=== PATIENT | male | born 1970 | race Caucasian/White ===

== ENCOUNTER 2016-08-06 21:34 | Emergency (ER) | payer BC ==
[~2016-08-06] VITALS: Ht 188 cm; Wt 86.2 kg
[~2016-08-06 21:34] MED LIST: ALBU8.5H3 INH; AZIT250T PO; CYCL10TA2 PO; ESCI10TA10 PO; HYDR-971 PO; IBUP800T PO; NAPR550T3 PO; ONDA8TAB12 PO; OXYM15MI4 NS; TAMS0.4C97 PO
[2016-08-06] MEDS ORDERED: IV NORMAL SALINE 1,000ML 1,000 ML IV ONE ×2 (21:45→23:15)
[2016-08-06] MEDS ORDERED: KETOROLAC 30 MG/ML VIAL. IV ONE (22:00)
[2016-08-06] MEDS ORDERED: ONDANSETRON PF 4 MG/2 ML VIAL. IV ONE ×2 (22:00→23:45)
[2016-08-06] MEDS ORDERED: HYDROMORPHONE PF 1 MG/ML DISP.SYRIN. IV ONE (22:00)
[2016-08-06 22:18] LABS: BASO # 0.1 x10^3/uL (0.0-0.2); BASO % 1 % (0-3); EOS # 0.4 x10^3/uL (0.0-0.7); EOS % 4 % (0-3); HEMATOCRIT 42.1 % (39.0-53.0); HEMOGLOBIN 13.7 g/dL (13.0-17.5); LYMPH # 3.6 x10^3/uL (1.0-4.8); LYMPH % 31 % (24-48); MEAN CORPUSCULAR HEMOGLOBIN 30 pg (25-35); MEAN CORPUSCULAR HGB CONC 33 g/dL (31-37); MEAN CORPUSCULAR VOLUME 93 fL (79-100); MONO # 0.8 x10^3/uL (0.0-1.1); MONO % 7 % (0-9); NEUT # 6.6 x10^3uL (1.8-7.7); NEUT % 57 % (31-73); PLATELET COUNT 434 x10^3/uL (140-400); RED BLOOD COUNT 4.55 x10^6/uL (4.30-5.70); RED CELL DISTRIBUTION WIDTH 14.1 % (11.5-14.5); WHITE BLOOD COUNT 11.5 x10^3/uL (4.0-11.0)
[2016-08-06 22:29] LABS: CALCIUM 8.3 mg/dL (8.5-10.1); CREATININE 0.9 mg/dL (0.7-1.3); GFR 90.8; POTASSIUM 3.4 mmol/L (3.5-5.1)
[2016-08-06] MEDS ORDERED: TRAMADOL 50 MG PO ONE (23:00)
[2016-08-06] MEDS ORDERED: PROMETHAZINE 25MG 4TABLET STARTPACK. PO ONE (23:00)
[2016-08-06] MEDS ORDERED: TAMSULOSIN 0.4 MG CAP.ER.24H. PO ONE (23:00)
--- NOTE | 2016-08-06 23:00 | RAD ---
PROCEDURE CT abdomen and pelvis without intravenous contrast. HISTORY Severe left flank pain radiating anteriorly with nausea. TECHNIQUE Helical CT of the abdomen and pelvis was performed without intravenous or oral contrast. Exposure: One or more of the following individualized dose reduction techniques were utilized for this examination: 1. Automated exposure control. 2. Adjustment of the mA and/or kV according to patient size. 3. Use of iterative reconstruction technique. COMPARISON CT abdomen pelvis April 14, 2016. FINDINGS Evaluation of solid organs of the abdomen and pelvis is limited by lack of intravenous contrast, as is standard for renal stone protocol. Evaluation of enteric structures may be limited by lack of oral contrast. Liver, spleen, pancreas, gallbladder, and bilateral adrenal glands are unremarkable. Stomach is distended by the ingested food stuffs. Aortoiliac calcified atherosclerosis is seen. No bowel obstruction or inflammation is identified. Appendix is without evidence of inflammation. Urinary bladder is unremarkable. There is evidence of mild left hydronephrosis, although it is is somewhat difficult to delineate the course of the left ureter secondary to relative paucity of intra-abdominal and intrapelvic fat. There is a 2 millimeter calcification in the left hemipelvis (axial image 123) which also can be seen on previous study. Consequently, this could represent persistent distal left ureteral stone versus phlebolith. Additional calcifications in the left hemipelvis are favored to be phleboliths and prostatic calcifications. The interpolar region of left kidney demonstrates punctate nonobstructive nephrolith. Inferior pole of left kidney demonstrates 2 millimeter nonobstructive nephrolith. Interpolar region of the right kidney demonstrates 3 millimeter nonobstructive nephrolith. Right ureter is free of stone or obstruction. IMPRESSION 1. There is a 2 millimeter calcification in the left hemipelvis, which could represent distal left ureteral stone versus phlebolith as it is unchanged from previous study. There is evidence of mild left hydronephrosis. 2. Both renal collecting systems demonstrates nonobstructive nephroliths. Electronically signed by: Anthony Cervantes MD (Aug 06, 2016 22:58:46)
[2016-08-06] MEDS ORDERED: MORPHINE SULFATE 4 MG/ML DISP.SYRIN. IV ONE (23:45)
[2016-08-07 00:21] LABS: BILIRUBIN,URINE NEG (NEG); CLARITY,URINE CLOUDY; COLOR,URINE AMBER; GLUCOSE,URINE NEG (NEG)
[2016-08-07 00:22] LABS: BACTERIA,URINE FEW /HPF (0-FEW); NITRITE,URINE NEG (NEG); RBC,URINE >40 /HPF (0-2); SQUAMOUS EPITHELIAL CELL,UR OCC /LPF; UROBILINOGEN,URINE 1 mg/dL (0.2 mg/dL); WBC,URINE 0 /HPF (0-4)
[2016-08-07] MEDS ORDERED: FENTANYL PF 100 MCG/2 ML VIAL. IV PRN (00:30)
[2016-08-07 00:40] VITALS: BP 140/90
--- NOTE | 2016-08-07 01:05 | ACF ---
Admission Criteria Forms BACK PAIN Clinical Indications for Admission to Inpatient Care (Place 'X' for any and all applicable criteria): Admission is indicated for ANY ONE of the following (1)(2)(3)(4)(5)(6): [ ]I. Inpatient admission required rather than observation care (Also use Back Pain: Observation Care as appropriate) because of ANY ONE of the following [ ]a) Severe pain requiring acute inpatient management [ ]b) Immediate inpatient surgery [ ]c) Other condition, treatment or monitoring requiring inpatient admission [ ]II. Spine fracture with significant damage or threat of damage to vertebral column or spinal cord [ ]III. Progressive or severe neurologic deficit [ ]IV. Suspected spinal infection (e.g., epidural abscess, vertebral osteomyelitis)(10) [ ]V. Suspected cause requires inpatient treatment (eg, aortic dissection) [ ]. Cauda equina syndrome as indicated by ANY ONE of the following (9): [ ]a) Bowel dysfunction [ ]b) Bladder dysfunction [ ]c) Saddle anesthesia [ ]d) Neurologic abnormality suggesting cauda equina impingement Extended stay beyond goal length of stay may be needed for (3)(25): [ ]a) Spinal cord compression from stenosis, disk, or tumor (8)(9) [ ]b) Traumatic or pathologic vertebral fracture (33) [ ]c) Vertebral infection(10) [ ]d) Severe pain that is difficult to control [ ]e) Older patients(65 years or older) The original [employer] content created by [employer] has been revised. The portions of the content which have been revised are identified through the use of italic text or in bold, and [facility] [employer] has neither reviewed nor approved the modified material. All other unmodified content is copyright [employer]. Please see references footnoted in the original [employer] edition 2016 VIRGEN MOONEY Aug 07, 2016 01:05
--- NOTE | 2016-08-07 20:23 | ED.ADGEN ---
Past History Past Medical History: Kidney Stones Past Surgical History: No Surgical History Smoking: Greater than 1 pack/day Alcohol Use: None Drug Use: None Adult General Chief Complaint Chief Complaint Left flank pain HPI HPI Patient is a 46-year-old male with history of kidney stones who presents with acute onset left lower flank pain radiating to left lower pelvis. Symptom onset 3 hours prior to ED arrival. Associated symptoms include nausea. Pain is rated moderate to severe and similar intensity and location to prior kidney stones. Patient denies hematuria, urinary frequency urgency and any urea. No fever chills, sweats or vomiting. No other acute symptoms or complaints. Review of Systems Review of Systems Review of symptoms as per history of present illness. Current Medications Current Medications Current Medications Medications (Trade) Dose Ordered Sig/Adan Start Time Stop Time Status Last Admin Dose Admin Fentanyl Citrate (Fentanyl 2ml Vial) 50 mcg PRN Q1HR PRN 08/07/16 00:30 08/07/16 01:28 DC 08/07/16 00:44 50 MCG Hydromorphone HCl (Dilaudid) 1 mg 1X ONCE 08/06/16 22:00 08/06/16 22:01 DC 08/06/16 22:00 1 MG Ketorolac Tromethamine (Toradol) 30 mg 1X ONCE 08/06/16 22:00 08/06/16 22:01 DC 08/06/16 22:00 30 MG Morphine Sulfate (Morphine 4mg Syringe) 4 mg 1X ONCE 08/06/16 23:45 08/06/16 23:49 DC 08/06/16 23:45 4 MG Ondansetron HCl (Zofran) 4 mg 1X ONCE 08/06/16 23:45 08/06/16 23:49 DC 08/06/16 23:45 4 MG Promethazine HCl (Starter Pack - Phenergan) 1 startpack 1X ONCE 08/06/16 23:00 08/06/16 23:01 DC 08/06/16 23:07 1 STARTPACK Sodium Chloride (Iv Sodium Chloride 0.9% 1,000ml) 1,000 ml @ 1,000 mls/hr 1X ONCE 08/06/16 23:15 08/07/16 00:14 DC 08/06/16 23:08 1,000 MLS/HR Tamsulosin HCl (Flomax) 0.4 mg 1X ONCE 08/06/16 23:00 3/31/17 23:01 DC 08/06/16 23:07 0.4 MG Tramadol HCl 1 startpack 1 startpack 1X ONCE 08/06/16 23:00 08/06/16 23:01 DC 08/06/16 23:07 1 STARTPACK Allergies Allergies Allergies Coded Allergies Type Severity Reaction Last Updated Verified No Known Drug Allergies 12/23/13 No Physical Exam Physical Exam Constitutional: Writhing, moderate distress secondary to pain. HENT: Normocephalic, atraumatic, bilateral external ears normal, oropharynx moist. Eyes: PERRLA, EOMI, conjunctiva normal. Neck: Normal range of motion. Cardiovascular: Regular rate and rhythm. Lungs & Thorax: Bilateral breath sounds clear to auscultation. Abdomen: Bowel sounds normal, soft, no tenderness. Skin: Warm. Back: No tenderness, no CVA tenderness. Extremities: No tenderness. Neurologic: Alert and oriented X 3, normal motor function, normal sensory function, no focal deficits noted. Psychologic: Affect normal, judgement normal, mood normal. [] Current Patient Data Vital Signs Vital Signs Date Time Temp Pulse Resp B/P Pulse Ox O2 Delivery O2 Flow Rate FiO2 08/07/16 00:40 66 16 140/90 99 Room Air 08/06/16 21:34 98.2 Lab Results Laboratory Tests Test 08/06/16 21:53 08/06/16 23:59 White Blood Count 11.5x10^3/uL (4.0-11.0) H Red Blood Count 4.55x10^6/uL (4.30-5.70) Hemoglobin 13.7g/dL (13.0-17.5) Hematocrit 42.1% (39.0-53.0) Mean Corpuscular Volume 93fL (79-100) Mean Corpuscular Hemoglobin 30pg (25-35) Mean Corpuscular Hemoglobin Concent 33g/dL (31-37) Red Cell Distribution Width 14.1% (11.5-14.5) Platelet Count 434x10^3/uL (140-400) H Neutrophils (%) (Auto) 57% (31-73) Lymphocytes (%) (Auto) 31% (24-48) Monocytes (%) (Auto) 7% (0-9) Eosinophils (%) (Auto) 4% (0-3) H Basophils (%) (Auto) 1% (0-3) Neutrophils # (Auto) 6.6x10^3uL (1.8-7.7) Lymphocytes # (Auto) 3.6x10^3/uL (1.0-4.8) Monocytes # (Auto) 0.8x10^3/uL (0.0-1.1) Eosinophils # (Auto) 0.4x10^3/uL (0.0-0.7) Basophils # (Auto) 0.1x10^3/uL (0.0-0.2) Sodium Level 144mmol/L (136-145) Potassium Level 3.4mmol/L (3.5-5.1) L Chloride Level 107mmol/L (98-107) Carbon Dioxide Level 31mmol/L (21-32) Anion Gap 6 (6-14) Blood Urea Nitrogen 11mg/dL (8-26) Creatinine 0.9mg/dL (0.7-1.3) Estimated GFR (Cockcroft-Gault) 90.8 Glucose Level 95mg/dL (70-99) Calcium Level 8.3mg/dL (8.5-10.1) L Urine Collection Type Void Urine Color Katty Urine Clarity Cloudy Urine pH 6.5 Urine Specific [place] 1.020 Urine Protein 30 mg/dl (NEG-TRACE) Urine Glucose (UA) Negmg/dL (NEG) Urine Ketones (Stick) Negmg/dL (NEG) Urine Blood Large (NEG) Urine Nitrite Neg (NEG) Urine Bilirubin Neg (NEG) Urine Urobilinogen Dipstick 1mg/dL (0.2 mg/dL) Urine Leukocyte Esterase Neg (NEG) Urine RBC >40/HPF (0-2) Urine WBC 0/HPF (0-4) Urine Squamous Epithelial Cells Occ/LPF Urine Bacteria Few/HPF (0-FEW) Urine Mucus Slight/LPF EKG EKG [] Radiology/Procedures Radiology/Procedures [CT abdomen pelvis without contrast: Affect are nephrosis with proximal hydroureter with possible 2 mm UVJ stone per radiology report.] Impressions: Left flank pain, hematuria, with suspected stone on CT abdomen and pelvis. Course & Med Decision Making Course & Med Decision Making Pertinent Labs and Imaging studies reviewed. (See chart for details) [Repeat doses of narcotic pain medication given. Patient resting comfortably at time of discharge. Recommendation is home supportive care and close urology follow-up. Return precautions reviewed.] Final Impression Final Impression [#1 left flank pain #2 infrarenal stone] Problems: Dragon Disclaimer Dragon Disclaimer This electronic medical record was generated, in whole or in part, using a voice recognition dictation system. AMEENA LEVI DO Aug 07, 2016 20:23
== END 2016-08-07 00:50 | disposition home or self-care (01) ==
LOC: ER 21:34
DX: N20.0 Calculus of kidney (principal); R31.9 Hematuria, unspecified; F17.210 Nicotine dependence, cigarettes, uncomplicated; Z87.442 Personal history of urinary calculi
CPT/HCPCS: 36415; 74176; 80048; 81001; 85027; 96361; 96374; 96375; 96376; 99285; J1170; J1885; J2270; J2405; J3010; J7030

== ENCOUNTER 2016-08-20 20:23 | Emergency (ER) | payer BC ==
[~2016-08-20] VITALS: Ht 188 cm; Wt 86.2 kg
--- NOTE | 2016-08-20 20:26 | PHYS DOC ---
General Stated Complaint: POSSIBLE KIDNEY STONE Time Seen by MD: 20:25 Source: patient Problems: History of Present Illness Initial Comments Patient here for left flank pain. Patient says it started about 2 hours prior to arrival in emergency department. He says he had flank pain like this 2 weeks ago was diagnosed with kidney stone. He also says he had episodes like this on both sides over the last year which were related to kidney stones. He has no recent history of injury or trauma to the area. He says the pain is sharp and throbbing. He's felt hot like he had a fever but has not taken his temperature. There's no chills. There is no runny nose or sore throat. There's no chest pain or shortness of breath. He's had some nausea but no vomiting. He does have some radiation the pain in the flank left midabdominal region. There is no change in bowel or bladder habits. He has not noticed any discoloration or blood in the urine. He denies any focal extremity or neurologic complaints. Patient had some medication left over from his previous admission to the ER 2 weeks ago that he took at home with some help. There is no other increasing or decreasing factors. He notes it is worse when he lies down. Patient's past medical history is otherwise unremarkable except for kidney stones. He does smoke a pack of cigarettes daily. He is nonuser of ethanol. There is no family history of kidney stones. Allergies: Coded Allergies: No Known Drug Allergies (Unverified , 12/23/13) Past Medical History Medical History: kidney stones Family History Significant Family History: no pertinent family hx Social History Smoker: less than 1 pack/day Alcohol: none Review of Systems All Other Systems: Reviewed and Negative Physical Exam General Appearance: WD/WN, mild distress Neck: full range of motion, supple, normal inspection Respiratory: lungs clear, normal breath sounds, no respiratory distress Cardiovascular: regular rate, rhythm, no edema Gastrointestinal: soft, no organomegaly, tenderness Back: no vertebral tenderness, CVA tenderness (L) Extremities: non-tender, normal inspection, no pedal edema Neurologic/Psychiatric: alert, normal mood/affect, oriented x 3 Skin: normal color Lymphatic: no adenopathy Comments Generally this is a thin white male who does look to be mildly uncomfortable with presumed flank pain. Vitals are as noted. Pertinent findings on physical exam shows a chest and cardiac exams unremarkable. Patient does have distinct left CVA tenderness. He has some mild left midabdominal tenderness, much less so than slight tenderness. There is no masses, organomegaly, or perineal findings. There is no signs of trauma about the abdomen or flank. Externally show no rash cyanosis or edema. He is alert awake and oriented and cooperative. Remainder of physical exam is quickly unremarkable. Orders, Labs, Meds Old charts note multiple prior ER visits for variety of issues. He is most recently seen at the end of July for ureteral stone. He has CT scan done at that time which showed some proximal hydronephrosis with a 2 mm stone at the UVJ. Patient did well and was discharged home. He is also seen in the ER for abdominal pain, flank pain, URI, cervical sprain, and on multiple occasions for low back pain with sciatica. Labs today shows stable renal function. Potassium is minimally decreased at 3.1. Renal ultrasound shows mild to moderate left hydronephrosis per radiology. 2300 Patient resting in the ER. He says he feels improved. He still looks mildly uncomfortable but does look better than before. His mother is now here with him. I discussed with them most likely cause of his discomfort is related to renal stone. We had discussed earlier in the ER course, and I reinforced now , that we wanted to avoid repeat CT scans due to radiation exposure, we will ultrasound shows the presence of obstruction really can't shows the size of the stone. I discussed we really need to go with his symptoms at this time. He was feeling significantly better, we could try to handle this home, but if he was still in significant discomfort it would make sense to bring him into the hospital for fluids, medications, and probable urology consult for stone removal. After discussion, he would like to try to handle this at home. His previous stone was relatively small and so hopefully this is the case today as well. We'll give him appropriate medication for pain, with prescriptions for Lortab, as well as for Zofran for nausea. Make sure he is able to drink some fluids before the ED. I'll try to prescription for potassium tablets, as he is slightly low at this time. I discussed with the patient and his mother the need to follow up with primary care and certainly return immediately if worsening anyway, including increasing pain, more vomiting, or any other symptoms. I suggested at that point the stone may require removal. They do voice understanding need to return immediately as needed if worsen anyway, and his mother reassures me that she will bring him back as needed. He still looks mildly uncomfortable but overall improved, in no acute distress at this time, and okay for discharge home per his preference. JESÚS HARRISON MD Aug 20, 2016 20:26
[2016-08-20 20:49] VITALS: BP 134/70
[2016-08-20] MEDS ORDERED: IV NORMAL SALINE 1,000ML 1,000 ML IV ONE (21:30)
[2016-08-20] MEDS ORDERED: ONDANSETRON PF 4 MG/2 ML VIAL. IV ONE (21:30)
[2016-08-20] MEDS ORDERED: KETOROLAC 30 MG/ML VIAL. IV ONE (21:30)
[2016-08-20 22:18] LABS: BASO # 0.1 x10^3/uL (0.0-0.2); BASO % 1 % (0-3); EOS # 0.4 x10^3/uL (0.0-0.7); EOS % 4 % (0-3); HEMOGLOBIN 13.9 g/dL (13.0-17.5); LYMPH # 2.6 x10^3/uL (1.0-4.8); LYMPH % 24 % (24-48); MEAN CORPUSCULAR HEMOGLOBIN 30 pg (25-35); MEAN CORPUSCULAR HGB CONC 33 g/dL (31-37); MEAN CORPUSCULAR VOLUME 92 fL (79-100); MONO # 0.8 x10^3/uL (0.0-1.1); MONO % 8 % (0-9); NEUT # 6.8 x10^3uL (1.8-7.7); NEUT % 63 % (31-73); PLATELET COUNT 433 x10^3/uL (140-400); RED BLOOD COUNT 4.58 x10^6/uL (4.30-5.70); RED CELL DISTRIBUTION WIDTH 13.9 % (11.5-14.5); WHITE BLOOD COUNT 10.7 x10^3/uL (4.0-11.0)
[2016-08-20 22:24] LABS: ALBUMIN/GLOBULIN RATIO 0.8 (1.0-1.7); CALCIUM 8.6 mg/dL (8.5-10.1); GFR 80.4; POTASSIUM 3.1 mmol/L (3.5-5.1); TOTAL BILIRUBIN 0.3 mg/dL (0.2-1.0); TOTAL PROTEIN 6.7 g/dL (6.4-8.2)
--- NOTE | 2016-08-20 22:30 | RAD ---
PROCEDURE Left renal ultrasound. HISTORY Left flank pain x4 hours. TECHNIQUE Real-time ultrasound imaging of the left kidney and the bladder is performed. COMPARISON CT abdomen and pelvis without contrast, August 06, 2016. FINDINGS Left kidney length is 13.5 cm. Cortical echotexture appears normal. Normal corticomedullary differentiation. There is mild to moderate left hydronephrosis. There is mild perinephric free fluid. The urinary bladder is normal. Right and left ureteral jets are seen. Single image of the abdominal aorta is normal caliber. Right kidney is not imaged. IMPRESSION Mild to moderate left hydronephrosis. Electronically signed by: Tigre Alcaraz MD (Aug 20, 2016 22:28:44)
[2016-08-20] MEDS ORDERED: ONDANSETRON ODT 4 MG TAB.RAPDIS PO ONE (23:30)
[2016-08-20] MEDS ORDERED: HYDROCODONE/APAP 10/325 TABLET. PO ONE (23:30)
[2016-08-20] MEDS ORDERED: POTASSIUM CHLORIDE 20 MEQ/15 ML ORAL LIQUID. PO ONE (23:30)
== END 2016-08-20 23:36 | disposition home or self-care (01) ==
LOC: ER 20:23
DX: N13.30 Unspecified hydronephrosis (principal); F17.210 Nicotine dependence, cigarettes, uncomplicated; Z87.442 Personal history of urinary calculi
CPT/HCPCS: 36415; 76775; 80053; 85027; 96361; 96374; 96375; 99285; J1885; J2405; Q0162; J7030

== ENCOUNTER 2016-08-23 14:48 | Emergency (ER) | payer BC ==
--- NOTE | 2016-08-23 15:08 | ED.ADGEN ---
Past History Past Medical History: Other Past Surgical History: No Surgical History Smoking: Greater than 1 pack/day Alcohol Use: None Drug Use: None Adult General HPI HPI Patient is a 46-year-old male presents emergency department complaining of migraine headache. This is the third lifetime migraine headache for him. He describes pain that is bilateral on the back of both sides of his head. He has associated photophobia and phonophobia. He also endorses nausea with it. This headache is been going on for approximately 15 hours. He did try some ibuprofen early this morning without any success. Review of Systems Review of Systems Constitutional: Denies fever or chills [] Eyes: Denies change in visual acuity, redness, or eye pain [] HENT: Denies nasal congestion or sore throat [] Respiratory: Denies cough or shortness of breath [] Cardiovascular: No additional information not addressed in HPI [] GI: Denies abdominal pain, nausea, vomiting, bloody stools or diarrhea [] : Denies dysuria or hematuria [] Musculoskeletal: Denies back pain or joint pain [] Integument: Denies rash or skin lesions [] Neurologic: Denies headache, focal weakness or sensory changes [] Endocrine: Denies polyuria or polydipsia [] Current Medications Current Medications Current Medications Medications (Trade) Dose Ordered Sig/Adan Start Time Stop Time Status Last Admin Dose Admin Acetaminophen (Tylenol) 1,000 mg 1X ONCE 08/23/16 15:45 08/23/16 15:46 DC 08/23/16 15:39 1,000 MG Diphenhydramine HCl (Benadryl) 25 mg 1X ONCE 08/23/16 15:30 08/23/16 15:31 DC 08/23/16 15:15 25 MG Ketorolac Tromethamine (Toradol) 15 mg 1X ONCE 08/23/16 15:30 08/23/16 15:31 DC 08/23/16 15:15 15 MG Prochlorperazine Edisylate (Compazine) 10 mg 1X ONCE 08/23/16 15:30 08/23/16 15:31 DC 08/23/16 15:15 10 MG Sodium Chloride (Iv Sodium Chloride 0.9% 1,000ml) 1,000 ml @ 1,000 mls/hr 1X ONCE 08/23/16 15:30 08/23/16 16:29 08/23/16 15:15 1,000 MLS/HR Allergies Allergies Allergies Coded Allergies Type Severity Reaction Last Updated Verified No Known Drug Allergies 12/23/13 No Physical Exam Physical Exam Constitutional: Well developed, well nourished, no acute distress, non-toxic appearance. [] HENT: Normocephalic, atraumatic, bilateral external ears normal, oropharynx moist, no oral exudates, nose normal. [] Eyes: PERRLA, EOMI, conjunctiva normal, no discharge. [] Neck: Normal range of motion, no tenderness, supple, no stridor. [] Cardiovascular:Heart rate regular rhythm, no murmur [] Lungs & Thorax: Bilateral breath sounds clear to auscultation [] Abdomen: Bowel sounds normal, soft, no tenderness, no masses, no pulsatile masses. [] Skin: Warm, dry, no erythema, no rash. [] Back: No tenderness, no CVA tenderness. [] Extremities: No tenderness, no cyanosis, no clubbing, ROM intact, no edema. [] Neurologic: Alert and oriented X 3, normal motor function, normal sensory function, no focal deficits noted. [] Psychologic: Affect normal, judgement normal, mood normal. [] Current Patient Data Vital Signs Vital Signs Date Time Temp Pulse Resp B/P Pulse Ox O2 Delivery O2 Flow Rate FiO2 08/23/16 16:00 99.8 96 18 109/41 94 Room Air EKG EKG [] Radiology/Procedures Radiology/Procedures [] Course & Med Decision Making Course & Med Decision Making Pertinent Labs and Imaging studies reviewed. (See chart for details) IV fluids, Compazine, Benadryl, Toradol. Patient is had significant improvement in his pain. He is also started to show a fever but the patient had been wrapped tightly multiple blankets and we went to the room. Nonetheless he did give him some Tylenol and his temperature is return to normal. Patient has no focal complaints such as rhinorrhea or cough. At this point we will discharge him home with follow-up and supportive care instructions. [] Final Impression Final Impression Migraine headache Viral syndrome [] Problems: Dragon Disclaimer Dragon Disclaimer This electronic medical record was generated, in whole or in part, using a voice recognition dictation system. MARYBETH ELLISON MD Aug 23, 2016 15:07
[2016-08-23] MEDS: DIPHENHYDRAMINE 50 MG/ML VIAL IVP ONE (15:15)
[2016-08-23] MEDS: PROCHLORPERAZINE 10 MG/2 ML VIAL. IV ONE (15:15)
[2016-08-23] MEDS: KETOROLAC 15 MG/ML VIAL. IV ONE (15:15)
[2016-08-23] MEDS: IV NORMAL SALINE 1,000ML 1,000 ML IV ONE (15:15)
[2016-08-23] MEDS: ACETAMINOPHEN 500 MG TABLET PO ONE (15:39)
[2016-08-23] MEDS ORDERED: ONDA4TAB10 PO (15:49)
[2016-08-23 16:00] VITALS: BP 109/41
== END 2016-08-23 15:55 | disposition home or self-care (01) ==
LOC: ER 14:48
DX: G43.909 Migraine, unspecified, not intractable, without status migrainosus (principal); B34.9 Viral infection, unspecified; F17.200 Nicotine dependence, unspecified, uncomplicated
CPT/HCPCS: 96361; 96374; 96375; 99284; J0780; J1200; J1885; J7030

== ENCOUNTER 2016-08-26 08:50 | Emergency (ER) | payer BC ==
[~2016-08-26 08:50] MED LIST changes: +ONDA4TAB10 PO
[2016-08-26] MEDS ORDERED: IV NORMAL SALINE 1,000ML 1,000 ML IV SCH ×2 (08:53→09:53)
[2016-08-26] MEDS ORDERED: ONDANSETRON PF 4 MG/2 ML VIAL. IV ONE (09:00)
[2016-08-26] MEDS ORDERED: FAMOTIDINE 20 MG/2 ML VIAL IVP ONE (09:15)
--- NOTE | 2016-08-26 09:23 | EKG ---
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
[2016-08-26 09:27] LABS: BASO % 1 % (0-3); EOS % 0 % (0-3); HEMOGLOBIN 14.7 g/dL (13.0-17.5); LYMPH # 0.8 x10^3/uL (1.0-4.8); LYMPH % 13 % (24-48); MEAN CORPUSCULAR HEMOGLOBIN 30 pg (25-35); MEAN CORPUSCULAR HGB CONC 33 g/dL (31-37); MEAN CORPUSCULAR VOLUME 92 fL (79-100); MONO # 0.3 x10^3/uL (0.0-1.1); MONO % 5 % (0-9); NEUT # 5.3 x10^3uL (1.8-7.7); NEUT % 82 % (31-73); PLATELET COUNT 309 x10^3/uL (140-400); RED BLOOD COUNT 4.89 x10^6/uL (4.30-5.70); RED CELL DISTRIBUTION WIDTH 14.1 % (11.5-14.5); WHITE BLOOD COUNT 6.4 x10^3/uL (4.0-11.0)
--- NOTE | 2016-08-26 09:33 | RAD ---
Indication syncopal episode. Nausea and vomiting. A single view of the chest as well as flat and upright films of the abdomen were obtained. Note is made of plain films of the abdomen 03/02/2012 as well as a two-view examination of the chest obtained the same day. Note is made of a CT examination of the abdomen and pelvis 08/06/2016. The heart and pulmonary vessels appear normal. The lungs are clear of acute infiltrates. There is no free air. There is a small amount of gas in nondistended loops of small bowel in the left abdomen. A significant finding in the abdomen is not apparent on plain films. A calcification is noted in the left pelvis compatible with a phlebolith similar to the previous plain film exam IMPRESSION: No acute or significant findings seen in the chest or abdomen on plain films.
[2016-08-26 09:37] LABS: ALBUMIN/GLOBULIN RATIO 0.8 (1.0-1.7); CREATININE 1.7 mg/dL (0.7-1.3); GFR 43.6; MAGNESIUM 1.6 mg/dL (1.8-2.4); POTASSIUM 3.6 mmol/L (3.5-5.1); TOTAL BILIRUBIN 0.2 mg/dL (0.2-1.0)
--- NOTE | 2016-08-26 09:37 | PHYS DOC ---
General Chief Complaint: SYNCOPE Stated Complaint: ABD PAIN Time Seen by MD: 08:51 Source: patient, EMS, old records Exam Limitations: no limitations Problems: History of Present Illness Initial Comments Pt is 46/M to ED via EMS for n/v, syncope. Pt was seen here 08/23 with less than 24h fever/nausea/CAI, sx improved with antiemetics/IVF and pt discharged home. Pt states that n/v have been persistent, with emesis 2-3 times/day past 3 days. Pt had loose watery stool at home this am, states he's been eating mainly soup as it's been a struggle to keep anything down. Pt CAI which was severe on has reportedly overall resolved, pt still c/o of "something not right" with frontal head discomfort. Denies abdominal pain/distension aside from muscle discomfort resultant from emesis, no travel/bad food exposure. No rash or neck stiffness, no focal neurodeficit, and CAI has been slowly improving. Pt states he tried to go to work today, he says he "passed out" at work three times this morning although denies falls or injury resultant from falls. "Passing out" described as feeling very weak and needing to sit/lay down. EMS reports pt BP 80's/40's, gave 500ML fluids en route. Allergies: Coded Allergies: No Known Drug Allergies (Unverified , 12/23/13) Past Medical History Medical History: kidney stones, other (kidney stones, migraines) Surgical History: noncontributory Family History Significant Family History: no pertinent family hx Review of Systems Constitutional: see HPI EENTM: denies eye pain, denies ear pain, denies nose pain, denies throat pain Respiratory: denies cough, denies shortness of breath, denies wheezing Cardiovascular: see HPIdenies chest pain, denies palpitations Gastrointestinal: see HPI Genitourinary: denies dysuria, denies frequency, denies hematuria Musculoskeletal: denies back pain, denies joint swelling, denies neck pain Psychiatric/Neurological: see HPI Hematologic/Lymphatic: denies blood clots, denies easy bleeding, denies easy bruising Physical Exam General Appearance: moderate distress, thin Eyes: bilateral eye EOMI, bilateral eye PERRL, bilateral eye normal inspection Ear, Nose, Throat: hearing grossly normal, normal ENT inspection (dry mucus membranes), normal pharynx Neck: non-tender, supple Respiratory: normal breath sounds, no respiratory distress Cardiovascular: normal peripheral pulses, regular rate, rhythm Gastrointestinal: normal bowel sounds, non tender, soft, no organomegaly Back: no CVA tenderness, no vertebral tenderness Extremities: non-tender, normal inspection 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 PHYSICIAN: TIFFANI HELLER DO REASON: abd pain, n/v, syncope/hypotension PROCEDURE: ACUTE ABDOMEN SERIES Indication syncopal episode. Nausea and vomiting. A single view of the chest as well as flat and upright films of the abdomen were obtained. Note is made of plain films of the abdomen 03/02/2012 as well as a two-view examination of the chest obtained the same day. Note is made of a CT examination of the abdomen and pelvis 08/06/2016. The heart and pulmonary vessels appear normal. The lungs are clear of acute infiltrates. There is no free air. There is a small amount of gas in nondistended loops of small bowel in the left abdomen. A significant finding in the abdomen is not apparent on plain films. A calcification is noted in the left pelvis compatible with a phlebolith similar to the previous plain film exam IMPRESSION: No acute or significant findings seen in the chest or abdomen on plain films. DICTATED AND SIGNED BY: DRE METZGER MD DATE: 08/26/16925 CC: BENJAMIN DOUGLAS MD; TIFFANI HELLER DO ~ PATIENT: ZAIRA ARRINGTON ACCOUNT: [id number] : 1970 LOCATION: ER AGE: 46 SEX: M EXAM STATUS: REG ER ORD. PHYSICIAN: TIFFANI HELLER DO REASON: CAI, n/v, syncope PROCEDURE: CT HEAD WO CONTRAST CT of the head without contrast, 08/26/2016: History: Syncope, nausea and vomiting The ventricles are within normal limits in size. There is no shift of the midline structures. There is no evidence of acute intracranial hemorrhage or mass effect. IMPRESSION: The CT of the head without contrast reveals no significant abnormality. RS Compliance Statement: One or more of the following individualized dose reduction techniques were utilized for this examination: 1. Automated exposure control 2. Adjustment of the mA and/or kV according to patient size 3. Use of iterative reconstruction technique DICTATED AND SIGNED BY: AMILCAR SCHWARTZ MD DATE: 08/26/16 1010 CC: BENJAMIN DOUGLAS MD; TIFFANI HELLER DO ~ 1127: Urine studies are pending, all else is back. Cr 1.7 otherwise unremarkable. Pt states he's feeling much better, just a little queasy. He has submitted urine specimen and it has been sent to lab. I discussed need to check orthostatic VS after hydration (total 2.5L NS IV) and have ordered magnesium replacement as well as K+ replacement as K+ 3.6 will fall below normal after dilution. Pt is very interested in a work note excusing him from work thru next Tuesday. Departure Time of Disposition: 12:00 Disposition: HOME, SELF-CARE Diagnosis: Hypovolemia w/hypotension, N/V, renal insuff, Condition: IMPROVED Patient Instructions: Creatinine, Blood (Serum Creatinine), Dehydration, Adult , [id number], Nausea and Vomiting, [id number] Additional Instructions: Off work thru 08/31 per request. Clear liquids, advance slowly to bland diet as tolerated. Aggressive hydration with gatorade, water. Rx: phenergan supp, zofran odt Follow up with your doctor in 2-3 days for recheck. Return to ED with new or changing symptoms. TIFFANI HELLER DO Aug 26, 2016 09:37
[2016-08-26 09:59] LABS: INFLUENZA A PATIENT NEGATIVE (NEGATIVE); INFLUENZA B PATIENT NEGATIVE (NEGATIVE)
[2016-08-26 10:04] VITALS: BP 100/56
--- NOTE | 2016-08-26 10:14 | RAD ---
CT of the head without contrast, 08/26/2016: History: Syncope, nausea and vomiting The ventricles are within normal limits in size. There is no shift of the midline structures. There is no evidence of acute intracranial hemorrhage or mass effect. IMPRESSION: The CT of the head without contrast reveals no significant abnormality. PQRS Compliance Statement: One or more of the following individualized dose reduction techniques were utilized for this examination: 1. Automated exposure control 2. Adjustment of the mA and/or kV according to patient size 3. Use of iterative reconstruction technique
[2016-08-26 11:34] LABS: AMPHETAMINE/METHAMPHETAMINE NEG (NEG); BARBITURATES NEG (NEG); BENZODIAZEPINES NEG (NEG); CANNABINOIDS NEG (NEG); COCAINE NEG (NEG); METHADONE NEG (NEG); OPIATES NEG (NEG); PHENCYCLIDINE NEG (NEG)
[2016-08-26 11:41] LABS: CLARITY,URINE HAZY; COLOR,URINE AMBER; GLUCOSE,URINE NEG (NEG)
[2016-08-26 11:42] LABS: AMORPHOUS SEDIMENT,UR PRESENT /HPF; BACTERIA,URINE 0 /HPF (0-FEW); BILIRUBIN,URINE NEG (NEG); GRANULAR CASTS,URINE OCC /HPF; HYALINE CASTS, URINE MANY /HPF; NITRITE,URINE NEG (NEG); RBC,URINE 0 /HPF (0-2); SQUAMOUS EPITHELIAL CELL,UR MOD /LPF; UROBILINOGEN,URINE 1 mg/dL (0.2 mg/dL)
[2016-08-26] MEDS ORDERED: POTASSIUM CHLORIDE 20 MEQ TABLET.ER. PO ONE (11:45)
[2016-08-26] MEDS ORDERED: MAGNESIUM CHLORIDE ER 64 MG TABLET.ER PO ONE (11:45)
[2016-08-26] MEDS ORDERED: ONDA4TAB10 PO (12:05)
[2016-08-26] MEDS ORDERED: PROM25SU32 RC (12:05)
== END 2016-08-26 12:25 | disposition home or self-care (01) ==
LOC: ER 08:50
DX: E86.1 Hypovolemia (principal); I95.9 Hypotension, unspecified; R11.2 Nausea with vomiting, unspecified; N28.9 Disorder of kidney and ureter, unspecified; G43.909 Migraine, unspecified, not intractable, without status migrainosus; Z87.442 Personal history of urinary calculi
CPT/HCPCS: 36415; 70450; 74022; 80053; 80305; 80320; 81001; 82550; 83605; 83690; 83735; 84484; 85027; 87040; 87070; 87804; 87880; 93005; 96361; 96374; 96375; 99285; J2405; S0028; G0480; G0481; J7030

== ENCOUNTER 2016-09-01 05:18 | Emergency (ER) | payer BC ==
[~2016-09-01] VITALS: Ht 188 cm; Wt 77.0 kg
[~2016-09-01 05:18] MED LIST changes: +PROM25SU32 RC
[2016-09-01 05:26] VITALS: BP 95/60
--- NOTE | 2016-09-01 05:43 | ED.ADGEN ---
Past History Past Medical History: Kidney Stones, Migraines (KELLY KIMBLE MD) Past Surgical History: No Surgical History (KELLY KIMBLE MD) Smoking: Greater than 1 pack/day Alcohol Use: None Drug Use: None (KELLY KIMBLE MD) General Abdominal Assessment Chief Complaint Abdominal pain and nausea (KELLY KIMBLE MD) History of Present Illness Patient is a pleasant 46-year-old male with history of smoking prior history of sciatica, kidney stones, flank pain, migraines who presents with a 2 day history of right flank pain that has gotten progressively worse. He describes the pain as sharp stabbing with minimal radiation to the lower abdomen. He has had some nausea without vomiting or diarrhea. He denies any hematuria and denies any inability to urinate. Denies any trauma. Patient admits that he has had some nausea that has been response to Zofran. He was seen 1 week ago for similar symptoms here in the emergency department. He drove himself here after work. The pain was more severe than earlier today. He admits to having subjective fevers and chills and decreased appetite. (KELLY KIMBLE MD) Review of Systems Constitutional: fever or chills [] Eyes: Denies change in visual acuity, redness, or eye pain [] HENT: Denies nasal congestion or sore throat [] Respiratory: Denies cough or shortness of breath [] Cardiovascular: No additional information not addressed in HPI [] GI: Denies abdominal pain, nausea, vomiting, bloody stools or diarrhea [] : Denies dysuria or hematuria [] Musculoskeletal: He has chronic back pain or joint pain [] Integument: Denies rash or skin lesions [] Neurologic: Denies headache, focal weakness or sensory changes [] Endocrine: Denies polyuria or polydipsia [] (KELLY KIMBLE MD) Current Medication Current Medications Medications (Trade) Dose Ordered Sig/Adan Start Time Stop Time Status Last Admin Dose Admin Hydromorphone HCl 1 mg 1 mg PRN Q15MIN PRN 09/01/16 05:45 09/02/16 05:44 09/01/16 05:51 1 MG Ondansetron HCl (Zofran) 4 mg 1X ONCE 09/01/16 05:45 09/01/16 05:47 DC 09/01/16 05:45 4 MG Sodium Chloride (Iv Sodium Chloride 0.9% 1,000ml) 1,000 ml @ 1,000 mls/hr Q1H 09/01/16 05:45 09/01/16 06:44 09/01/16 05:45 1,000 MLS/HR Sodium Chloride (Normal Saline Flush) 10 ml QSHIFT PRN 09/01/16 05:45 09/01/16 05:50 10 ML (CM HELMS MD) Allergies Allergies Coded Allergies Type Severity Reaction Last Updated Verified No Known Drug Allergies 12/23/13 No (CM HELMS MD) Allergies No allergies (KELLY KIMBLE MD) Physical Exam Vital signs noted on exam from nursing notes within normal limits. Constitutional: Well developed, well nourished,and feels very uncomfortable with this time but nontoxic in appearance. HENT: Normocephalic, atraumatic, oropharynx is dry poor dentition Eyes: PERRLA, EOMI, conjunctiva normal, no discharge. Neck: Normal range of motion, no tenderness, Cardiovascular:Heart rate regular rhythm, no murmur [] Lungs & Thorax: Bilateral breath sounds clear to auscultation [] Abdomen: Abdomen distended palpation over the right flank with no obvious changes in skin discoloration. Patient is no rebound guarding or organomegaly. Patient inserts no specific McBurney's or Gonzalez sign. Skin: Warm, dry, no erythema, no rash. Back: No tenderness, no CVA tenderness. [] Extremities: No tenderness, no cyanosis, no clubbing, ROM intact, no edema. [] Neurologic: Alert and oriented X 3, normal motor function, normal sensory function, no focal deficits noted. [] Psychologic: Affect normal, judgement normal, mood normal. He is anxious (KELLY KIMBLE MD) Negative Abdominal Assessment Patient denies any diarrhea or trauma. 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 [] PULSE OXIMETRY The patient maintained their pulse oximetry readings above 90 percent during their evaluation per my interpretation.[] (KELLY KIMBLE MD) Radiology/Procedures [] Indication syncopal episode. Nausea and vomiting. A single view of the chest as well as flat and upright films of the abdomen were obtained. Note is made of plain films of the abdomen 03/02/2012 as well as a two-view examination of the chest obtained the same day. Note is made of a CT examination of the abdomen and pelvis 08/06/2016. The heart and pulmonary vessels appear normal. The lungs are clear of acute infiltrates. There is no free air. There is a small amount of gas in nondistended loops of small bowel in the left abdomen. A significant finding in the abdomen is not apparent on plain films. A calcification is noted in the left pelvis compatible with a phlebolith similar to the previous plain film exam IMPRESSION: No acute or significant findings seen in the chest or abdomen on plain films. DICTATED AND SIGNED BY: DRE METZGER MD DATE: 08/26/16 0926 Reviewed acute abdomen series from 08/26/16 no acute findings at that time. As read by radiology (KELLY KIMBLE MD) Current Data Laboratory Tests Test 09/01/16 05:30 09/01/16 05:45 White Blood Count 6.7x10^3/uL (4.0-11.0) Red Blood Count 5.20x10^6/uL (4.30-5.70) Hemoglobin 15.7g/dL (13.0-17.5) Hematocrit 47.5% (39.0-53.0) Mean Corpuscular Volume 91fL (79-100) Mean Corpuscular Hemoglobin 30pg (25-35) Mean Corpuscular Hemoglobin Concent 33g/dL (31-37) Red Cell Distribution Width 13.7% (11.5-14.5) Platelet Count 334x10^3/uL (140-400) Neutrophils (%) (Auto) 66% (31-73) Lymphocytes (%) (Auto) 26% (24-48) Monocytes (%) (Auto) 7% (0-9) Eosinophils (%) (Auto) 1% (0-3) Basophils (%) (Auto) 0% (0-3) Neutrophils # (Auto) 4.4x10^3uL (1.8-7.7) Lymphocytes # (Auto) 1.8x10^3/uL (1.0-4.8) Monocytes # (Auto) 0.5x10^3/uL (0.0-1.1) Eosinophils # (Auto) 0.1x10^3/uL (0.0-0.7) Basophils # (Auto) 0.0x10^3/uL (0.0-0.2) Sodium Level 142mmol/L (136-145) Potassium Level 3.7mmol/L (3.5-5.1) Chloride Level 104mmol/L (98-107) Carbon Dioxide Level 31mmol/L (21-32) Anion Gap 7 (6-14) Blood Urea Nitrogen 11mg/dL (8-26) Creatinine 0.9mg/dL (0.7-1.3) Estimated GFR (Cockcroft-Gault) 90.8 BUN/Creatinine Ratio 12 (6-20) Glucose Level 114mg/dL (70-99) H Calcium Level 8.4mg/dL (8.5-10.1) L Total Bilirubin 0.2mg/dL (0.2-1.0) Aspartate Amino Transf (AST/SGOT) 40U/L (15-37) H Alanine Aminotransferase (ALT/SGPT) 42U/L (16-63) Alkaline Phosphatase 92U/L (46-116) Total Protein 7.7g/dL (6.4-8.2) Albumin 3.4g/dL (3.4-5.0) Albumin/Globulin Ratio 0.8 (1.0-1.7) L Lipase 102U/L (73-393) Urine Collection Type Unknown Urine Color Yellow Urine Clarity Clear Urine pH 5.0 Urine Specific [place] 1.020 Urine Protein Trace (NEG-TRACE) Urine Glucose (UA) Negmg/dL (NEG) Urine Ketones (Stick) Tracemg/dL (NEG) Urine Blood Trace (NEG) Urine Nitrite Neg (NEG) Urine Bilirubin Neg (NEG) Urine Urobilinogen Dipstick 0.2mg/dL (0.2 mg/dL) Urine Leukocyte Esterase Neg (NEG) Urine RBC Occ/HPF (0-2) Urine WBC 1-4/HPF (0-4) Urine Squamous Epithelial Cells Few/LPF Urine Bacteria 0/HPF (0-FEW) Active Scripts Medications Dose Route/Sig Days Date Category Dose Instructions Zofran Odt (Ondansetron) 4 Mg Tab.rapdis 4 Mg PO Q6HRS 08/26/16 Rx Phenergan (Promethazine HCl) 25 Mg Supp.rect 25 Mg RC Q6HRS 08/26/16 Rx Zofran Odt (Ondansetron) 4 Mg Tab.rapdis 4 Mg PO Q6HRS PRN 08/23/16 Rx Ibuprofen 800 Mg Tablet 1 Tab PO TID PRN 05/12/16 Rx take with food or milk Cyclobenzaprine Hcl 10 Mg Tablet 1 Tab PO TID 05/12/16 Rx for muscle relaxer [place] 5-325 Tablet (Hydrocodone Bit/Acetaminophen) 1 Each Tablet 1-2 Tab PO PRN Q6HRS PRN 05/12/16 Rx Ibuprofen 800 Mg Tablet 1 Tab PO TID 04/14/16 Rx [place] 5-325 Tablet (Hydrocodone Bit/Acetaminophen) 1 Each Tablet 1-2 Tab PO Q4-6HRS 04/14/16 Rx Flomax (Tamsulosin Hcl) 0.4 Mg Cap.er.24h 1 Cap PO DAILY 04/14/16 Rx Afrin (Oxymetazoline Hcl) 15 Ml Mist 15 Ml NS BID 3 04/06/16 Rx Proair Hfa Inhaler (Albuterol Sulfate) 8.5 Gm Hfa.aer.ad 1 Puff INH PRN Q6HRS PRN 04/06/16 Reported Zithromax (Azithromycin) 250 Mg Tablet 1 Pkg PO UD 04/06/16 Reported Zofran Odt (Ondansetron) 8 Mg Tab.rapdis 1 Tab PO Q8HRS 04/06/16 Reported Vital Signs Date Time Temp Pulse Resp B/P Pulse Ox O2 Delivery O2 Flow Rate FiO2 09/01/16 05:26 97.7 62 20 94 Room Air Vital Signs Date Time Temp Pulse Resp B/P Pulse Ox O2 Delivery O2 Flow Rate FiO2 09/01/16 05:51 18 96 Room Air 09/01/16 05:26 97.7 62 20 94 Room Air Vital Signs Date Time Temp Pulse Resp B/P Pulse Ox O2 Delivery O2 Flow Rate FiO2 09/01/16 05:51 18 96 Room Air 09/01/16 05:26 97.7 62 (CM HELMS MD) Course & Med Decision Making Pertinent Labs and Imaging studies reviewed. (See chart for details) [Patient presents with right flank pain that has been bothering for last several weeks worse last day seen in our ER 1 week ago for same. With a history of kidney stones in his dehydrated appearance I'm concerned for possible kidney stone. He will be evaluated for intra-abdominal catastrophe to include small bowel obstruction, appendicitis, diverticulitis, kidney stones, UTI, renal abscess. Patient is a smoker but has no other risk factors for acute abdominal aneurysm.] Upon arrival reviewed nursing notes and agree with vital signs as well as assessment. (KELLY KIMBLE MD) Critical Care Time Critical care time was [] minutes exclusive of procedures. (KELLY KIMBLE MD) Final Impression [] Problems: (KELLY KIMBLE MD) Assessment/Plan Assessment/Plan 46 yo Male presenting to the emergency department with R flank pain. The pts vital signs showed soft blood pressures likely 2/2 n/v and dehydration. This improved with IV fluid resuscitation. The patient does have a history of kidney stones. IV established, the patient had received Dilaudid and Zofran and saline prior to the patient being signed out to me at [address] the abdomen pelvis shows the patient has right sided nephrolithiasis. CBC unremarkable. Urinalysis shows blood otherwise not suggestive of infection. Chemistry panel is without electrolyte disturbances. On reevaluation the patient's pain and improved. He was subsequent discharged home with a strainer with oral medications for nausea and vomiting and pain control. He was to follow-up with his primary care physician over the next 2-3 days or to return the emergency department for worsening symptoms. [id number] discharge instructions were given along with return precautions. The patient is comfortable with plan. Cm Helms MD (CM HELMS MD) KELLY KIMBLE MD Sep 01, 2016 05:43 CM HELMS MD Sep 01, 2016 06:25
[2016-09-01] MEDS ORDERED: 0.9 % SODIUM CHLORIDE 10 ML DISP.SYRIN. IV PRN (05:45)
[2016-09-01] MEDS ORDERED: HYDROMORPHONE PF 1 MG/ML DISP.SYRIN. IV/SQ PRN (05:45)
[2016-09-01] MEDS ORDERED: ONDANSETRON PF 4 MG/2 ML VIAL. IV ONE (05:45)
[2016-09-01] MEDS ORDERED: IV NORMAL SALINE 1,000ML 1,000 ML IV SCH (05:45)
[2016-09-01 05:58] LABS: BACTERIA,URINE 0 /HPF (0-FEW); BILIRUBIN,URINE NEG (NEG); CLARITY,URINE CLEAR; COLOR,URINE YELLOW; GLUCOSE,URINE NEG (NEG); NITRITE,URINE NEG (NEG); RBC,URINE OCC /HPF (0-2); SQUAMOUS EPITHELIAL CELL,UR FEW /LPF; UROBILINOGEN,URINE 0.2 mg/dL (0.2 mg/dL)
--- NOTE | 2016-09-01 06:03 | RAD ---
PROCEDURE CT abdomen and pelvis without contrast 09/01/2016. HISTORY Severe right-sided flank pain. History of kidney stones. TECHNIQUE Noncontrast images were performed. Exposure: One or more of the following individualized dose reduction techniques were utilized for this exam: 1. Automated exposure control. 2. Adjustment of the mA and/or kV according to patient size. 3. Use of iterative reconstruction technique. COMPARISON 08/06/2016. FINDINGS The lung bases are clear. The liver and spleen are homogeneous in density and normal in configuration. Evaluation of the solid organs is somewhat limited by lack of IV contrast. The kidneys show no apparent mass or obstruction. Tiny calculi are again seen bilaterally. The adrenal glands and pancreas appear normal. No adenopathy or soft tissue mass is seen. There is no apparent inflammatory process. Evaluation is somewhat limited by lack of oral contrast and lack of intra-abdominal fat. Images through the pelvis shows that a 2 millimeter calcification previously seen along the distal ureter is now at the vesicoureteral junction. There is minimal hydroureter related to this. No right ureteral stone is seen. The bladder was not well distended, but appears normal. No pelvic or inguinal adenopathy is seen. There is no apparent pelvic soft tissue mass or inflammatory process. IMPRESSION A distal left ureteral stone has migrated to the bladder. There is minimal associated obstruction. No right ureteral stone or other cause for right-sided pain is identified. Electronically signed by: Pablo Nichols (Sep 01, 2016 06:01:57)
[2016-09-01 06:04] LABS: ALBUMIN 3.4 g/dL (3.4-5.0); ALBUMIN/GLOBULIN RATIO 0.8 (1.0-1.7); CALCIUM 8.4 mg/dL (8.5-10.1); CREATININE 0.9 mg/dL (0.7-1.3); GFR 90.8; POTASSIUM 3.7 mmol/L (3.5-5.1); TOTAL BILIRUBIN 0.2 mg/dL (0.2-1.0); TOTAL PROTEIN 7.7 g/dL (6.4-8.2)
[2016-09-01 06:05] LABS: BASO % 0 % (0-3); EOS # 0.1 x10^3/uL (0.0-0.7); EOS % 1 % (0-3); HEMATOCRIT 47.5 % (39.0-53.0); HEMOGLOBIN 15.7 g/dL (13.0-17.5); LYMPH # 1.8 x10^3/uL (1.0-4.8); LYMPH % 26 % (24-48); MEAN CORPUSCULAR HEMOGLOBIN 30 pg (25-35); MEAN CORPUSCULAR HGB CONC 33 g/dL (31-37); MEAN CORPUSCULAR VOLUME 91 fL (79-100); MONO # 0.5 x10^3/uL (0.0-1.1); MONO % 7 % (0-9); NEUT # 4.4 x10^3uL (1.8-7.7); NEUT % 66 % (31-73); PLATELET COUNT 334 x10^3/uL (140-400); RED CELL DISTRIBUTION WIDTH 13.7 % (11.5-14.5); WHITE BLOOD COUNT 6.7 x10^3/uL (4.0-11.0)
[2016-09-01] MEDS ORDERED: ONDA4TAB10 SL (06:30)
[2016-09-01] MEDS ORDERED: MORP15TA PO (06:30)
== END 2016-09-01 06:50 | disposition home or self-care (01) ==
LOC: ER 05:22
DX: R10.9 Unspecified abdominal pain (principal); F17.200 Nicotine dependence, unspecified, uncomplicated; G43.909 Migraine, unspecified, not intractable, without status migrainosus; Z87.442 Personal history of urinary calculi
CPT/HCPCS: 36415; 74176; 80053; 81001; 83690; 85027; 96361; 96374; 96375; 99285; J1170; J2405; J7030

== ENCOUNTER 2016-09-01 13:14 | Emergency (ER) | payer BC ==
[~2016-09-01] VITALS: Ht 188 cm; Wt 77.0 kg
[~2016-09-01 13:14] MED LIST changes: +MORP15TA PO; +ONDA4TAB10 SL
--- NOTE | 2016-09-01 13:46 | PHYS DOC ---
Past History Past Medical History: Kidney Stones Past Surgical History: No Surgical History Smoking: Greater than 1 pack/day Alcohol Use: None Drug Use: None Adult General Chief Complaint Chief Complaint: HEADACHE HPI HPI 46-year-old male presenting to the emergency department after being seen earlier for nephrolithiasis. He presents today again with headache. He describes this similar to his previous migraines. This is sharp shooting pain that wraps around his head. It is moderate in nature. She denies vision changes numbness weakness or tingling. He denies the headache being sudden set. He denies it reaching maximal intensity within one hour. He describes it as similar to his previous migraines. Review of systems is negative for vision changes numbness weakness tingling abdominal pain chest pain shortness of breath fevers chills neck stiffness or meningismus. All other review of systems is negative unless otherwise noted in history of present illness. Review of Systems Review of Systems SEE ABOVE. Allergies Allergies Allergies Coded Allergies Type Severity Reaction Last Updated Verified No Known Drug Allergies 09/01/16 No Physical Exam Physical Exam Constitutional: Well developed, well nourished, pt is in mild amount of pain, non-toxic appearance. [] HENT: Normocephalic, atraumatic, bilateral external ears normal, oropharynx moist, no oral exudates, nose normal. Eyes: PERRLA, EOMI, conjunctiva normal, no discharge. [] Neck: Normal range of motion, no tenderness, supple, no stridor. Cardiovascular:Heart rate regular rhythm, no murmur [] Lungs & Thorax: Bilateral breath sounds clear to auscultation [] Abdomen: Bowel sounds normal, soft, no tenderness, no masses, no pulsatile masses. Skin: Warm, dry, no erythema, no rash. [] Back: No tenderness, no CVA tenderness. Extremities: No tenderness, no cyanosis, no clubbing, ROM intact, no edema. [] Neurologic: Mental status: Awake oriented and alert x3 Cranial nerves: Extraocular movements intact, eyebrows marlen bilaterally smile symmetric, uvula elevation, shoulder shrug intact, tongue protrusion normal DTRs: 2+ Sensation: equal and normal in all extremities Strength: 5/5 in upper and lower extremities bilaterally Psychologic: Affect normal, judgement normal, mood normal. [] Current Patient Data Vital Signs Vital Signs Date Time Temp Pulse Resp B/P Pulse Ox O2 Delivery O2 Flow Rate FiO2 09/01/16 13:26 98.1 68 18 97 Room Air EKG EKG [] Radiology/Procedures Radiology/Procedures [] Course & Med Decision Making Course & Med Decision Making Pertinent Labs and Imaging studies reviewed. (See chart for details) [] 46-year-old male presenting to the emergency department with a headache similar to his previous migraines. Vital signs afebrile with mild hypertension. Otherwise normal neurologic exam. No evidence of meningismus or neck stiffness. Patient's pain was treated with IV Reglan and Benadryl and fluids. On reexamination is feeling much better. The patient was then discharged home in stable condition to follow up with their primary care physician over the next 2- 3 days. They were to return if there symptoms worsened or if they are concerned for any reason. [id number] discharge instructions and return precautions were given. Patient's questions were answered to their satisfaction. Patient is comfortable plan. Dragon Disclaimer Dragon Disclaimer This chart was dictated in whole or in part using Voice Recognition software in a busy, high-work load, and often noisy Emergency Department environment. It may contain unintended and wholly unrecognized errors or omissions. Departure Departure: Impression: Primary Impression: Headache Disposition: 01 HOME, SELF-CARE Condition: STABLE Referrals: BENJAMIN DOUGLAS MD (PCP) Patient Instructions: General Headache Without Cause Additional Instructions: Thank you for allowing us to participate in your care today. Followup with your primary care physician in 3 days if your symptoms do not improve. If you do not have a primary care provider you can ask for a list of our primary care providers. Return to the emergency department you have any new or concerning findings. This should be evaluated by the primary care physician and any necessary consulting services for continued management within a few days after discharge. Return to emergency room if you have any new or concerning symptoms including but not limited to fever, chills, nausea, vomiting, intractable pain, any new rashes, chest pain, shortness of air, uncontrolled bleeding, difficulty breathing, and/or vision loss. You may have been prescribed medication that can change in your level of thinking and ability to operate machinery. These medications include hydrocodone and Ativan. Also, Benadryl has been known to do this as well. Be sure to check with your pharmacist and ask if the medications you've prescribed can affect your level of consciousness. I recommend not operating heavy machinery or driving while on medication such as these. CM HELMS MD Sep 01, 2016 13:46
[2016-09-01] MEDS ORDERED: DIPHENHYDRAMINE 50 MG/ML VIAL IVP ONE (14:10)
[2016-09-01] MEDS ORDERED: METOCLOPRAMIDE HCL 10 MG/2 ML VIAL. IV ONE (14:10)
[2016-09-01] MEDS ORDERED: IV NORMAL SALINE 1,000ML 1,000 ML IV ONE (14:10)
--- NOTE | 2016-09-01 14:12 | RAD ---
CT of the head without contrast, 09/01/2016: History: Headache Comparison is made to a study from 08/26/2016. The ventricles are within normal limits in size. There is no shift of the midline structures. There is no evidence of acute intracranial hemorrhage or mass effect. IMPRESSION: No acute intracranial abnormality is detected. PQRS Compliance Statement: One or more of the following individualized dose reduction techniques were utilized for this examination: 1. Automated exposure control 2. Adjustment of the mA and/or kV according to patient size 3. Use of iterative reconstruction technique
[2016-09-01 15:00] VITALS: BP 142/68
== END 2016-09-01 15:02 | disposition home or self-care (01) ==
LOC: ER 13:14
DX: R51 Headache (principal); I10 Essential (primary) hypertension; F17.200 Nicotine dependence, unspecified, uncomplicated; Z87.442 Personal history of urinary calculi
CPT/HCPCS: 70450; 96361; 96374; 96375; 99284; J1200; J2765; J7030

== ENCOUNTER 2016-09-11 02:43 | Emergency (ER) | payer BC ==
[~2016-09-11 02:43] MED LIST changes: -ALBU8.5H3 INH; +ALBU8.5H8 INH; +CYCL-331 PO; -CYCL10TA2 PO; -IBUP800T PO; +IBUP800T19 PO
[2016-09-11] MEDS ORDERED: IV NORMAL SALINE 1,000ML 1,000 ML IV SCH (03:30)
--- NOTE | 2016-09-11 03:35 | PHYS DOC ---
General Chief Complaint: MULTIPLE COMPLAINTS Stated Complaint: ABDOMINAL,BACK,LEG PAIN X 3 DAYS Time Seen by MD: 02:50 Source: patient, family Exam Limitations: no limitations Problems: History of Present Illness Initial Comments Pt is 46/M to ED c/o leg/back/abdominal pain x 3 d. Pt states he has b/l leg cramping, states he has low back discomfort and urinary frequency "I can feel it in my legs when I pee." Pt twitchy, c/o severe pain with light skin touch of lower extremities. Pt has 8 ED visits since May for pain complaints. Denies strenuous activity or prolonged walking, no numbness/tingling/weakness/radiating sx. No focal neurodeficit, no cp/sob/n/v/d. Timing/Duration: other (3 days) Severity: severe Modifying Factors: improves with medication, worse with movement Associated Symptoms: malaise, other Allergies: Coded Allergies: No Known Drug Allergies (Unverified , 09/01/16) Past Medical History Medical History: kidney stones, other (migraine, sciatica, DJD, chronic pain) Surgical History: noncontributory Family History Significant Family History: no pertinent family hx Social History Smoker: cigarettes, greater than 1 pack/day Alcohol: none Drugs: none Review of Systems Constitutional: denies chills, denies fever, denies malaise Respiratory: denies cough, denies shortness of breath Cardiovascular: denies chest pain, denies palpitations Gastrointestinal: see HPI Genitourinary: see HPI Musculoskeletal: see HPI Psychiatric/Neurological: see HPI, denies headache Hematologic/Lymphatic: denies blood clots, denies easy bleeding, denies easy bruising Physical Exam General Appearance: moderate distress, thin Eyes: bilateral eye normal inspection, bilateral eye PERRL, bilateral eye EOMI Ear, Nose, Throat: hearing grossly normal, normal ENT inspection, normal pharynx Neck: non-tender, supple Respiratory: normal breath sounds, no respiratory distress Cardiovascular: normal peripheral pulses, regular rate, rhythm Gastrointestinal: normal bowel sounds, non tender, soft Back: no vertebral tenderness, CVA tenderness (R), CVA tenderness (L) Extremities: normal range of motion, normal inspection, no pedal edema, other ( exquisite TTP to light skin touch) 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 0448: Pt sleeping after valium/toradol, slept thru most of discussion of results and disposition. Pt safe to go home with family. Departure Time of Disposition: 04:40 Disposition: HOME, SELF-CARE Diagnosis: methamphetamine abuse, hypokalemia Condition: STABLE Patient Instructions: Hypokalemia-Brief, Methamphetamine Abuse, Complications, Methamphetamine Mouth Additional Instructions: Discontinue illicit substance abuse, seek medical assistance if necessary. Aggressive hydration with gatorade, water. Eat one banana twice daily for potassium supplementation. Rx: klor-con 20meq #[address] Nieto Tuesday for recheck of potassium and to discuss possible drug rehabilitation/recovery. Return to ED with new or changing symptoms. TIFFANI HELLER DO September 11, 2016 03:35
[2016-09-11] MEDS ORDERED: KETOROLAC 30 MG/ML VIAL. IV ONE (03:45)
[2016-09-11 04:08] LABS: BASO # 0.1 x10^3/uL (0.0-0.2); BASO % 1 % (0-3); EOS # 0.1 x10^3/uL (0.0-0.7); EOS % 1 % (0-3); HEMOGLOBIN 13.6 g/dL (13.0-17.5); LYMPH # 2.9 x10^3/uL (1.0-4.8); LYMPH % 37 % (24-48); MEAN CORPUSCULAR HEMOGLOBIN 30 pg (25-35); MEAN CORPUSCULAR HGB CONC 33 g/dL (31-37); MEAN CORPUSCULAR VOLUME 91 fL (79-100); MONO # 0.8 x10^3/uL (0.0-1.1); MONO % 10 % (0-9); NEUT # 4.2 x10^3uL (1.8-7.7); NEUT % 52 % (31-73); PLATELET COUNT 464 x10^3/uL (140-400); RED BLOOD COUNT 4.53 x10^6/uL (4.30-5.70); RED CELL DISTRIBUTION WIDTH 13.4 % (11.5-14.5); WHITE BLOOD COUNT 8.1 x10^3/uL (4.0-11.0)
[2016-09-11 04:18] LABS: CALCIUM 8.2 mg/dL (8.5-10.1); CREATININE 0.7 mg/dL (0.7-1.3); GFR 121.4; POTASSIUM 3.2 mmol/L (3.5-5.1)
[2016-09-11 04:19] LABS: BARBITURATES NEG (NEG); BENZODIAZEPINES NEG (NEG); CANNABINOIDS NEG (NEG); COCAINE NEG (NEG); METHADONE NEG (NEG); OPIATES NEG (NEG); PHENCYCLIDINE NEG (NEG)
[2016-09-11 04:20] LABS: AMPHETAMINE/METHAMPHETAMINE POS (NEG)
[2016-09-11] MEDS ORDERED: POTA20TA4 PO (04:40)
[2016-09-11 04:50] VITALS: BP 131/89
[2016-09-11] MEDS ORDERED: POTASSIUM CHLORIDE 20 MEQ TABLET.ER. PO ONE (05:00)
--- NOTE | 2016-09-11 08:03 | RAD ---
Indication abdominal discomfort for 2 days. Supine and upright films of the abdomen were obtained. Note is made of an abdominal series examination 08/26/[address] examination of the abdomen and pelvis 09/01/2016. The lung bases are clear. The abdominal gas pattern is normal. No organomegaly or definite abnormal calculi are seen. There is a calcification in the left pelvis compatible with a phlebolith. Moderate amount of stool is noted in the large bowel. IMPRESSION: No acute or significant finding seen in the abdomen on plain films
== END 2016-09-11 05:00 | disposition home or self-care (01) ==
LOC: ER 02:43
DX: E87.6 Hypokalemia (principal); F15.10 Other stimulant abuse, uncomplicated; G89.29 Other chronic pain; G43.909 Migraine, unspecified, not intractable, without status migrainosus; F17.210 Nicotine dependence, cigarettes, uncomplicated; Z87.442 Personal history of urinary calculi
CPT/HCPCS: 36415; 74020; 80048; 80305; 82550; 83690; 84484; 85027; 96361; 96374; 96375; 99285; J1885; G0481; J7030

== ENCOUNTER 2016-09-30 05:27 | Emergency (ER) | payer BC ==
[~2016-09-30 05:27] MED LIST changes: +POTA20TA4 PO
[2016-09-30 06:58] LABS: AMPHETAMINE/METHAMPHETAMINE NEG (NEG); BARBITURATES NEG (NEG); BENZODIAZEPINES NEG (NEG); CANNABINOIDS NEG (NEG); COCAINE NEG (NEG); METHADONE NEG (NEG); OPIATES NEG (NEG); PHENCYCLIDINE NEG (NEG)
[2016-09-30 07:59] VITALS: BP 115/49
--- NOTE | 2016-09-30 08:15 | PHYS DOC ---
General Chief Complaint: RIB PAIN Stated Complaint: RIB AND ABDOMINAL PAIN Time Seen by MD: 06:05 Source: patient, family Exam Limitations: no limitations Problems: History of Present Illness Initial Comments Pt is 46/M to ED c/o rib pain. Checked on pt twice but he was sleeping. Awoke pt this time to discuss his pain complaints. C/o rib/abd discomfort, no n/v/d appetite intact. Denies trauma, no cough/sob/barry/wheeze/fever/chills. +methamphetamine last ED visit, denies recent use. A family member present, pt begins to get worked up. Repeatedly asking "why can 't you guys figure out what's going on with him... 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 Asked if I could discuss risks/benefits of staying vs leaving AMA, pt refused again demanding I leave exam room. Staff called for security to come down, pt left signed out by RN. Other than labs, no other evaluation/findings. Allergies: Coded Allergies: No Known Drug Allergies (Unverified , 09/01/16) Past Medical History Medical History: kidney stones, other Surgical History: noncontributory Family History Significant Family History: no pertinent family hx Departure Time of Disposition: 08:13 Disposition: 07 AGAINST MEDICAL ADVICE Diagnosis: rib pain, methamphetamine abuse, AGAINST MEDICAL A Condition: LEFT WITHOUT BEING SEEN Patient Instructions: Discharge Against Medical Advice Additional Instructions: Follow up with a doctor later today. Return here as needed. TIFFANI HELLER DO September 30, 2016 08:15
[2016-10-03] MEDS ORDERED: IPRA3AMP NEB (10:54)
== END 2016-09-30 08:05 | disposition left against medical advice (07) ==
LOC: ER 05:27
DX: R07.81 Pleurodynia (principal); F15.10 Other stimulant abuse, uncomplicated; Z87.442 Personal history of urinary calculi
CPT/HCPCS: 36415; 80305; G0481; 99283-25

== ENCOUNTER 2016-10-02 07:16 | Observation (INO) | payer BC ==
[~2016-10-02] VITALS: Ht 188 cm; Wt 75.3 kg
[2016-10-02 07:30] VITALS: BP 104/69
[2016-10-02 08:00] VITALS: BP 104/69
[2016-10-02 08:10] LABS: BASO # 0.2 x10^3/uL (0.0-0.2); BASO % 1 % (0-3); EOS % 0 % (0-3); HEMATOCRIT 41.2 % (39.0-53.0); HEMOGLOBIN 13.8 g/dL (13.0-17.5); LYMPH # 17.1 x10^3/uL (1.0-4.8); LYMPH % 75 % (24-48); MEAN CORPUSCULAR HEMOGLOBIN 30 pg (25-35); MEAN CORPUSCULAR HGB CONC 33 g/dL (31-37); MEAN CORPUSCULAR VOLUME 88 fL (79-100); MONO # 1.5 x10^3/uL (0.0-1.1); MONO % 7 % (0-9); NEUT # 4.1 x10^3uL (1.8-7.7); NEUT % 18 % (31-73); PLATELET COUNT 389 x10^3/uL (140-400); RED BLOOD COUNT 4.67 x10^6/uL (4.30-5.70); RED CELL DISTRIBUTION WIDTH 13.8 % (11.5-14.5); WHITE BLOOD COUNT 22.9 x10^3/uL (4.0-11.0)
[2016-10-02 08:29] LABS: ALBUMIN 2.6 g/dL (3.4-5.0); ALBUMIN/GLOBULIN RATIO 0.6 (1.0-1.7); CALCIUM 8.1 mg/dL (8.5-10.1); CREATININE 0.7 mg/dL (0.7-1.3); GFR 121.4; POTASSIUM 3.4 mmol/L (3.5-5.1); TOTAL BILIRUBIN 0.2 mg/dL (0.2-1.0); TOTAL PROTEIN 6.7 g/dL (6.4-8.2)
[2016-10-02] MEDS ORDERED: ONDANSETRON ODT 4 MG TAB.RAPDIS PO PRN ×2 (08:45)
[2016-10-02] MEDS ORDERED: IBUPROFEN 800 MG TABLET. PO PRN (08:45)
[2016-10-02] MEDS ORDERED: HYDROcodone/APAP 5/325MG 1 TAB TABLET PO PRN ×2 (08:45)
[2016-10-02] MEDS ORDERED: ALBUTEROL SULFATE 8GM INHALER. INH PRN (08:45)
[2016-10-02] MEDS ORDERED: MORPHINE IR 15 MG TABLET PO PRN (08:45)
[2016-10-02] MEDS ORDERED: IBUPROFEN 800 MG TABLET. PO SCH (09:00)
[2016-10-02] MEDS ORDERED: CYCLOBENZAPRINE 10 MG TABLET. PO SCH (09:00)
[2016-10-02] MEDS ORDERED: ALBUTEROL SULFATE 2.5 MG/3 ML NEBU. NEB PRN (09:15)
[2016-10-02] MEDS ORDERED: IV NORMAL SALINE 250ML 250 ML ONE (09:15)
[2016-10-02] MEDS: methylPREDNISolone SOD SUCC PF 40 MG/ML VIAL. IV SCH ×2 (09:18→20:52)
[2016-10-02] MEDS: TAMSULOSIN 0.4 MG CAP.ER.24H. PO SCH (09:19)
[2016-10-02] MEDS: POTASSIUM CHLORIDE 20 MEQ TABLET.ER. PO SCH ×2 (09:23→20:52)
[2016-10-02] MEDS ORDERED: IOHEXOL 300 MG/ML 75 ML VIAL. IV ONE (09:45)
--- NOTE | 2016-10-02 10:16 | RAD ---
EXAM: CT angiogram of the chest with intravenous contrast. HISTORY: Shortness of breath and chest pain. TECHNIQUE: Computed tomographic images of the chest were obtained following the administration of 75 cc Omnipaque 300 intravenous contrast. Three-dimensional maximum intensity projection images were obtained. One or more of the following individualized dose reduction techniques were utilized for this examination: 1. Automated exposure control. 2. Adjustment of the mA and/or kV according to patient size. 3. Use of iterative reconstruction technique. COMPARISON: None. FINDINGS: There is no evidence of pulmonary embolism. The heart is normal in size. The aorta is normal in caliber. No pathologically enlarged systolic or hilar lymph node is seen. There is no pneumothorax or pleural effusion. There is no infiltrate or suspicious pulmonary nodule. There is mild emphysema. There is right basilar atelectasis or pleural-parenchymal scarring. There is suspected hepatomegaly and hepatic steatosis. There is left adrenal gland thickening without a discrete adrenal nodule. The spleen is upper normal in size. There is a left superior endplate depression with Schmorl's node at T 11. There is a chronic mild wedge compression fracture of T6 and there are chronic superior endplate depressions at T2, T3 and T4. There are a few vertebral body hemangiomas. No suspicious osseous lesion is seen. IMPRESSION: 1. No evidence of pulmonary embolism or alternative acute pulmonary finding. 2. Mild emphysema.
[2016-10-02 10:58] LABS: % BANDS 3 % (0-9); % BASOS 3 % (0-3); % BLASTS 2 % (0-0); % LYMPHS 53 % (24-48); % MONOS 4 % (0-10); % SEGS 14 % (35-66)
[2016-10-02 10:59] LABS: SMUDGE CELLS PRESENT
[2016-10-02 11:09] VITALS: BP 123/70
[2016-10-02 11:10] LABS: % MYELOS 1 % (0-0); PLT ESTIMATE INCREASED (ADEQUATE); POLYCHROMASIA SLIGHT
[2016-10-02 11:11] LABS: TOXIC GRANULATION SLIGHT
[2016-10-02] MEDS ORDERED: PROMETHAZINE 25 MG SUPP.RECT. RC SCH (12:00)
[2016-10-02] MEDS ORDERED: ONDANSETRON ODT 4 MG TAB.RAPDIS PO SCH (12:00)
[2016-10-02] MEDS: IPRATRPIUM/ALBUTEROL 0.5/2.5MG 3 ML NEBU. NEB SCH ×3 (12:00→21:00)
[2016-10-02] MEDS ORDERED: MAGNESIUM HYDROXIDE 2,400 MG/30 ML ORAL.SUSP. PO PRN (13:00)
[2016-10-02 15:30] VITALS: BP 114/70
[2016-10-02 18:38] VITALS: BP 120/64
[2016-10-02 23:02] VITALS: BP 116/65
[2016-10-03] MEDS: IPRATRPIUM/ALBUTEROL 0.5/2.5MG 3 ML NEBU. NEB SCH ×2 (05:32→11:46)
[2016-10-03 06:07] VITALS: BP 114/66
[2016-10-03 06:45] LABS: BASO % 0 % (0-3); EOS % 0 % (0-3); HEMATOCRIT 40.5 % (39.0-53.0); HEMOGLOBIN 13.4 g/dL (13.0-17.5); LYMPH # 14.2 x10^3/uL (1.0-4.8); LYMPH % 73 % (24-48); MEAN CORPUSCULAR HEMOGLOBIN 29 pg (25-35); MEAN CORPUSCULAR HGB CONC 33 g/dL (31-37); MEAN CORPUSCULAR VOLUME 89 fL (79-100); MONO % 5 % (0-9); NEUT # 4.2 x10^3uL (1.8-7.7); NEUT % 22 % (31-73); PLATELET COUNT 401 x10^3/uL (140-400); RED BLOOD COUNT 4.57 x10^6/uL (4.30-5.70); RED CELL DISTRIBUTION WIDTH 14.3 % (11.5-14.5); WHITE BLOOD COUNT 19.4 x10^3/uL (4.0-11.0)
[2016-10-03 07:04] LABS: CALCIUM 8.1 mg/dL (8.5-10.1); CREATININE 0.8 mg/dL (0.7-1.3); GFR 104.1; POTASSIUM 4.2 mmol/L (3.5-5.1)
[2016-10-03] MEDS: TAMSULOSIN 0.4 MG CAP.ER.24H. PO SCH (08:14)
[2016-10-03] MEDS: POTASSIUM CHLORIDE 20 MEQ TABLET.ER. PO SCH (08:15)
[2016-10-03] MEDS: methylPREDNISolone SOD SUCC PF 40 MG/ML VIAL. IV SCH (08:15)
[2016-10-03] MEDS ORDERED: IV NORMAL SALINE 100ML 100 ML ONE (08:42)
[2016-10-03] MEDS ORDERED: IPRA3AMP NEB (10:54)
== END 2016-10-03 11:55 | disposition home or self-care (01) ==
LOC: ICU 07:16 → 1 SOUTH 10-03 03:33
PROVIDERS: ADMIT Family Medicine; ATTEND Family Medicine
DX: J18.8 Other pneumonia, unspecified organism (principal); F17.210 Nicotine dependence, cigarettes, uncomplicated; J93.9 Pneumothorax, unspecified; R06.02 Shortness of breath; M25.211 Flail joint, right shoulder
CPT/HCPCS: 36415; 71275; 80048; 80053; 83605; 83735; 85007; 85027; 85379; 86738; 87449; 87641; 94640; 96365; 96367; 96375; 96376; G0378; G0379; J0696; J1956; J2920; J7050; J7620; Q9967

== ENCOUNTER 2017-06-29 15:46 | Emergency (ER) | payer SELFPAY ==
[~2017-06-29] VITALS: Ht 188 cm; Wt 73.9 kg
[~2017-06-29 15:46] MED LIST changes: -ESCI10TA10 PO; +IPRA3AMP NEB; +LEXAPRO10 MG PO; +NAPR-677 PO; -NAPR550T3 PO
--- NOTE | 2017-06-29 16:13 | EKG ---
[address] [address] Test Date: 2017-06-29 Test Time: 16:04:40 Pat Name: ZAIRA ARRINGTON Department: Room: Gender: M Incident Coordinator: EPHRAIM : 1970 Requested By: KAREEN KENNEDY Order Number: [id number] Reading MD: Measurements Intervals [place] Rate: 75 P: 64 MD: 172 QRS: -40 QRSD: 90 T: 49 QT: 364 QTc: 409 Interpretive Statements SINUS RHYTHM ATRIAL PREMATURE COMPLEX(ES) ABNORMAL LEFT AXIS DEVIATION LEFT ANTERIOR FASCICULAR BLOCK ABNORMAL ECG RI6.01 No previous ECG available for comparison
[2017-06-29] MEDS ORDERED: 0.9 % SODIUM CHLORIDE 10 ML DISP.SYRIN. IV PRN (16:15)
[2017-06-29] MEDS: IV NORMAL SALINE 1,000ML 1,000 ML IV SCH (16:16)
[2017-06-29 16:30] LABS: BASO % 0 % (0-3); EOS # 0.1 x10^3/uL (0.0-0.7); EOS % 2 % (0-3); HEMATOCRIT 45.8 % (39.0-53.0); HEMOGLOBIN 15.4 g/dL (13.0-17.5); LYMPH # 3.2 x10^3/uL (1.0-4.8); LYMPH % 42 % (24-48); MEAN CORPUSCULAR HEMOGLOBIN 30 pg (25-35); MEAN CORPUSCULAR HGB CONC 34 g/dL (31-37); MEAN CORPUSCULAR VOLUME 88 fL (79-100); MONO # 0.5 x10^3/uL (0.0-1.1); MONO % 7 % (0-9); NEUT # 3.8 x10^3uL (1.8-7.7); NEUT % 50 % (31-73); PLATELET COUNT 542 x10^3/uL (140-400); WHITE BLOOD COUNT 7.6 x10^3/uL (4.0-11.0)
[2017-06-29] MEDS: ONDANSETRON PF 4 MG/2 ML VIAL. IV ONE (16:35)
[2017-06-29 16:38] LABS: ALBUMIN 3.3 g/dL (3.4-5.0); ALBUMIN/GLOBULIN RATIO 0.7 (1.0-1.7); CALCIUM 8.5 mg/dL (8.5-10.1); CREATININE 0.7 mg/dL (0.7-1.3); GFR 121.4; TOTAL BILIRUBIN 0.2 mg/dL (0.2-1.0); TOTAL PROTEIN 8.3 g/dL (6.4-8.2)
[2017-06-29 16:57] LABS: BACTERIA,URINE 0 /HPF (0-FEW); BILIRUBIN,URINE NEG (NEG); CLARITY,URINE CLEAR; COLOR,URINE YELLOW; GLUCOSE,URINE NEG (NEG); NITRITE,URINE NEG (NEG); SQUAMOUS EPITHELIAL CELL,UR FEW /LPF; UROBILINOGEN,URINE 4 mg/dL (0.2 mg/dL)
[2017-06-29 17:01] LABS: BARBITURATES NEG (NEG); BENZODIAZEPINES NEG (NEG); CANNABINOIDS NEG (NEG); COCAINE NEG (NEG); METHADONE NEG (NEG); OPIATES NEG (NEG); PHENCYCLIDINE NEG (NEG)
[2017-06-29 17:02] LABS: AMPHETAMINE/METHAMPHETAMINE POS (NEG)
--- NOTE | 2017-06-29 17:16 | RAD ---
Limited abdomen ultrasound study of the right upper quadrant Clinical indications: Abdominal pain for 4 days with bloating. Findings: The pancreas is homogeneous without focal enlargement. The intrahepatic portion of the IVC is unremarkable. The gallbladder is distended measuring up to 10 cm. No gallbladder wall thickening or pericholecystic free fluid is seen. No gallstones or biliary sludge is seen within the gallbladder. The extra hepatic bile duct measures 4.4 mm in caliber which is normal. The intrahepatic ducts appear dilated however. The liver is homogeneous and no focal hepatic mass is seen. The liver measures 17.9 cm in length which is at the upper limits of normal. The length of the right kidney is 12.8 cm. No hydronephrosis or renal mass or perinephric fluid collection is seen on this side. IMPRESSION: Distended gallbladder. Dilatation of the intrahepatic bile ducts. However, was is visualized of the extra hepatic bile duct is not dilated measuring only 4.4 mm. It is possible that a bile duct obstruction more proximal to this area may be present. Therefore, correlation with liver function tests is needed. A CT study of the abdomen with IV contrast may be helpful for further evaluation if clinically indicated.
[2017-06-29] MEDS: IOHEXOL 300 MG/ML 75 ML VIAL. IV ONE (17:36)
[2017-06-29] MEDS ORDERED: CONTRAST GIVEN MC PRN (17:45)
--- NOTE | 2017-06-29 17:48 | PHYS DOC ---
Past History Past Medical History: Anxiety, Kidney Stones Additional Past Medical Histor: methamphetamine abuse Past Surgical History: No Surgical History Smoking: Greater than 1 pack/day Alcohol Use: None Drug Use: None Adult General Chief Complaint Chief Complaint: ABDOMINAL PAIN [facility] 46 year old male patient complaining of epigastric and periumbilical pain that started 4 days ago as a constant pain with radiation to his back that resolved spontaneously after 1 day. Patient complaining of the same pain that started this morning without diarrhea, constipation, urinary symptom, vomiting. Patient states on his way to his primary care physician office he had nausea. Patient states he had a bowel movement this morning without change of his pain. Patient states the pain getting better with eating. Patient seen by his primary care physician Dr. Douglas and sent to ER for evaluation. Patient denies smoking, drinking alcohol, using illegal drugs. Patient was seen in this emergency room multiple times for abdominal pain and kidney stone symptom. Review of Systems Review of Systems Constitutional: Denies fever or chills [] Eyes: Denies change in visual acuity, redness, or eye pain [] HENT: Denies nasal congestion or sore throat [] Respiratory: Denies cough or shortness of breath [] Cardiovascular: No additional information not addressed in HPI [] GI: Reports abdominal pain, nausea, denies vomiting, bloody stools or diarrhea [ ] : Denies dysuria or hematuria [] Musculoskeletal: Denies back pain or joint pain [] Integument: Denies rash or skin lesions [] Neurologic: Denies headache, focal weakness or sensory changes [] Endocrine: Denies polyuria or polydipsia [] All other systems were reviewed and found to be within normal limits, except as documented in this note. Current Medications Current Medications Current Medications Medications (Trade) Dose Ordered Sig/Adan Start Time Stop Time Status Last Admin Dose Admin Info (Do NOT chart on this entry -- for MONITORING) 1 each PRN DAILY PRN 06/29/17 17:45 07/01/17 17:44 Iohexol (Omnipaque 300 Mg/ml) 75 ml 1X ONCE 06/29/17 17:45 06/29/17 17:46 06/29/17 17:36 75 ML Ondansetron HCl (Zofran) 4 mg 1X ONCE 06/29/17 17:00 06/29/17 17:01 DC 06/29/17 16:35 4 MG Sodium Chloride (Normal Saline Flush) 10 ml QSHIFT PRN 06/29/17 16:15 Allergies Allergies Allergies Coded Allergies Type Severity Reaction Last Updated Verified No Known Drug Allergies 09/01/16 No Physical Exam Physical Exam Constitutional: Moderate distress, non-toxic appearance, ill looking. [] HENT: Normocephalic, atraumatic, bilateral external ears normal, oropharynx dry , no oral exudates, nose normal. [] Eyes: PERRLA, EOMI, conjunctiva normal, no discharge. [] Neck: Normal range of motion, no tenderness, supple, no stridor. [] Cardiovascular:Heart rate regular rhythm, no murmur [] Lungs & Thorax: Bilateral breath sounds clear to auscultation [] Abdomen: Bowel sounds normal, soft, right upper quadrant tenderness with positive Gonzalez sign, no masses, no pulsatile masses. [] Skin: Warm, dry, no erythema, no rash. [] Back: No tenderness, no CVA tenderness. [] Extremities: No tenderness, no cyanosis, no clubbing, ROM intact, no edema. [] Neurologic: Alert and oriented X 3, normal motor function, normal sensory function, no focal deficits noted. [] Psychologic: Affect normal, judgement normal, mood normal. [] Current Patient Data Vital Signs Vital Signs Date Time Temp Pulse Resp B/P (MAP) Pulse Ox O2 Delivery O2 Flow Rate FiO2 06/29/17 17:27 70 20 130/87 (101) 95 Room Air 06/29/17 15:46 98.5 Lab Results Laboratory Tests Test 06/29/17 16:05 White Blood Count 7.6 x10^3/uL (4.0-11.0) Red Blood Count 5.20 x10^6/uL (4.30-5.70) Hemoglobin 15.4 g/dL (13.0-17.5) Hematocrit 45.8 % (39.0-53.0) Mean Corpuscular Volume 88 fL (79-100) Mean Corpuscular Hemoglobin 30 pg (25-35) Mean Corpuscular Hemoglobin Concent 34 g/dL (31-37) Red Cell Distribution Width 14.0 % (11.5-14.5) Platelet Count 542 x10^3/uL (140-400) H Neutrophils (%) (Auto) 50 % (31-73) Lymphocytes (%) (Auto) 42 % (24-48) Monocytes (%) (Auto) 7 % (0-9) Eosinophils (%) (Auto) 2 % (0-3) Basophils (%) (Auto) 0 % (0-3) Neutrophils # (Auto) 3.8 x10^3uL (1.8-7.7) Lymphocytes # (Auto) 3.2 x10^3/uL (1.0-4.8) Monocytes # (Auto) 0.5 x10^3/uL (0.0-1.1) Eosinophils # (Auto) 0.1 x10^3/uL (0.0-0.7) Basophils # (Auto) 0.0 x10^3/uL (0.0-0.2) Platelet Estimate Pending Urine Collection Type Unknown Urine Color Yellow Urine Clarity Clear Urine pH 6.0 Urine Specific [place] 1.025 Urine Protein Neg (NEG-TRACE) Urine Glucose (UA) Neg mg/dL (NEG) Urine Ketones (Stick) Neg mg/dL (NEG) Urine Blood Trace (NEG) Urine Nitrite Neg (NEG) Urine Bilirubin Neg (NEG) Urine Urobilinogen Dipstick 4 mg/dL (0.2 mg/dL) Urine Leukocyte Esterase Neg (NEG) Urine RBC 1-2 /HPF (0-2) Urine WBC 1-4 /HPF (0-4) Urine Squamous Epithelial Cells Few /LPF Urine Bacteria 0 /HPF (0-FEW) Urine Mucus Marked /LPF Sodium Level 140 mmol/L (136-145) Potassium Level 4.0 mmol/L (3.5-5.1) Chloride Level 102 mmol/L (98-107) Carbon Dioxide Level 32 mmol/L (21-32) Anion Gap 6 (6-14) Blood Urea Nitrogen 15 mg/dL (8-26) Creatinine 0.7 mg/dL (0.7-1.3) Estimated GFR (Cockcroft-Gault) 121.4 BUN/Creatinine Ratio 21 (6-20) H Glucose Level 94 mg/dL (70-99) Calcium Level 8.5 mg/dL (8.5-10.1) Total Bilirubin 0.2 mg/dL (0.2-1.0) Aspartate Amino Transferase (AST) 16 U/L (15-37) Alanine Aminotransferase (ALT) 19 U/L (16-63) Alkaline Phosphatase 130 U/L (46-116) H Troponin I Quantitative < 0.017 ng/mL (0-0.055) Total Protein 8.3 g/dL (6.4-8.2) H Albumin 3.3 g/dL (3.4-5.0) L Albumin/Globulin Ratio 0.7 (1.0-1.7) L Lipase 68 U/L (73-393) L Urine Opiates Screen Neg (NEG) Urine Methadone Screen Neg (NEG) Urine Barbiturates Neg (NEG) Urine Phencyclidine Screen Neg (NEG) Urine Amphetamine/Methamphetamine Pos (NEG) Urine Benzodiazepines Screen Neg (NEG) Urine Cocaine Screen Neg (NEG) Urine Cannabinoids Screen Neg (NEG) Urine Ethyl Alcohol Neg (NEG) EKG EKG EKG interpreted by me. EKG at 1604 showed normal sinus rhythm at rate of 75, PACs, left axis deviation, left anterior fascicular block, no acute ST and T wave abnormality[] Radiology/Procedures Radiology/Procedures [] [place] [address] IMAGING REPORT Signed PATIENT: ZAIRA ARRINGTON ACCOUNT: [id number] : 1970 LOCATION: ER AGE: 46 SEX: M EXAM STATUS: REG ER ORD. PHYSICIAN: KAREEN KENNEDY MD REASON: abdominal pain PROCEDURE: ABDOMEN LTD Limited abdomen ultrasound study of the right upper quadrant Clinical indications: Abdominal pain for 4 days with bloating. Findings: The pancreas is homogeneous without focal enlargement. The intrahepatic portion of the IVC is unremarkable. The gallbladder is distended measuring up to 10 cm. No gallbladder wall thickening or pericholecystic free fluid is seen. No gallstones or biliary sludge is seen within the gallbladder. The extra hepatic bile duct measures 4.4 mm in caliber which is normal. The intrahepatic ducts appear dilated however. The liver is homogeneous and no focal hepatic mass is seen. The liver measures 17.9 cm in length which is at the upper limits of normal. The length of the right kidney is 12.8 cm. No hydronephrosis or renal mass or perinephric fluid collection is seen on this side. IMPRESSION: Distended gallbladder. Dilatation of the intrahepatic bile ducts. However, was is visualized of the extra hepatic bile duct is not dilated measuring only 4.4 mm. It is possible that a bile duct obstruction more proximal to this area may be present. Therefore, correlation with liver function tests is needed. A CT study of the abdomen with IV contrast may be helpful for further evaluation if clinically indicated. DICTATED AND SIGNED BY: JENNIE CHAVARRIA MD DATE: 06/29/17 [id number] CC: BENJAMIN DOUGLAS MD; KAREEN KENNEDY MD ~ Course & Med Decision Making Course & Med Decision Making Pertinent Labs and Imaging studies reviewed. (See chart for details) Patient was a sleeping after arrival to ER. Patient had positive methamphetamine and states she had under stress. Patient had unremarkable labs and CT of abdomen and pelvis except for nephrolithiasis. discharge: I've spoken with the patient and/or caregivers. I've explained the patient's condition, diagnosis and treatment plan based on information available to me at this time. I've answered the patient's and/or caregivers questions and addressed any concerns. The patient and/or caregivers have a good understanding the patient's diagnosis, condition and treatment plan as can be expected at this point. Vital signs have been stabilized. The patient's condition is stable for discharge from the emergency department. The patient will pursue further outpatient evaluation with her primary care provider or other designated consulting physician as outlined in the discharge instructions. Patient and/or caregivers are agreeable to this plan of care and follow-up instructions have been explained in detail. The patient and/or caregivers have received these instructions in written format and expressed understanding of these discharge instructions. The patient and her caregivers are aware that if any significant change in condition or worsening of symptoms should prompt him to immediately return to this of the closest emergency department. If an emergent department is not readily available I would encourage him to call 911. [] Dragon Disclaimer Dragon Disclaimer This electronic medical record was generated, in whole or in part, using a voice recognition dictation system. Departure Departure: Impression: Primary Impression: Epigastric pain Additional Impressions: Methamphetamine abuse Nephrolithiasis Disposition: HOME, SELF-CARE (At 1800) Condition: IMPROVED Referrals: BENJAMIN DOUGLAS MD (PCP) Patient Instructions: Abdominal Pain, Methamphetamine Abuse, Complications Additional Instructions: Drink plenty of liquids Follow-up with your primary care physician in 3-5 days Return to ER if not getting better Scripts Ondansetron (ZOFRAN ODT) 4 Mg Tab.rapdis 1 TAB SL Q8HRS, #15 TAB Prov: KAREEN KENNEDY MD 06/29/17 Problem Qualifiers KAREEN KENNEDY MD Jun 29, 2017 17:48
--- NOTE | 2017-06-29 17:54 | RAD ---
EXAM: Abdomen and pelvis CT with intravenous contrast. HISTORY: Right upper quadrant pain. TECHNIQUE: Computed tomographic images of the abdomen and pelvis were obtained following the administration of 75 cc Omnipaque 300 intravenous contrast. Multiplanar reformatting was performed. *One or more of the following individualized dose reduction techniques were utilized for this examination: 1. Automated exposure control. 2. Adjustment of the mA and/or kV according to patient size. 3. Use of iterative reconstruction technique. COMPARISON: Sonogram performed on the same date and CT dated 09/01/2016. FINDINGS: Evaluation of the lower thorax is unremarkable. No hepatic lesion is seen. There The gallbladder, pancreas, spleen and adrenal glands are unremarkable. There is right renal cortical lobulation, developmental or due to scarring. There is a 3 mm nonobstructing stone within the mid zone of the right kidney. There is no obstructive uropathy. There is no appendicitis. No abnormally thickened or dilated loop of bowel is seen. The urinary bladder is unremarkable. No pathologically enlarged lymph node is seen. There is no suspicious osseous lesion. IMPRESSION: 1. Right nephroureterolithiasis. There is no evidence of obstructive uropathy. 2. Otherwise, relatively unremarkable abdomen and pelvis CT. Electronically signed by: Radha Moore MD (06/29/2017 5:51 PM) [facility]
[2017-06-29 18:00] VITALS: BP 128/77
[2017-06-29] MEDS ORDERED: ONDA4TAB10 SL (18:02)
[2017-06-29 21:16] LABS: % BANDS 1 % (0-9); % LYMPHS 23 % (24-48); % MONOS 8 % (0-10); % SEGS 52 % (35-66)
[2017-06-29 21:22] LABS: PLT ESTIMATE INCREASED (ADEQUATE)
[2017-06-29 21:26] LABS: % ATYL 16 % (0-0)
== END 2017-06-29 18:20 | disposition home or self-care (01) ==
LOC: ER 15:46
DX: N20.0 Calculus of kidney (principal); F41.9 Anxiety disorder, unspecified; F17.200 Nicotine dependence, unspecified, uncomplicated; F15.10 Other stimulant abuse, uncomplicated; Z87.442 Personal history of urinary calculi
CPT/HCPCS: 36415; 74177; 76705; 80053; 80307; 81001; 83690; 84484; 85007; 85025; 93005; 96361; 96374; 99285; J2405; Q9967; G0479; J7030

== ENCOUNTER 2018-04-21 12:08 | Inpatient (IN) | payer SELFPAY ==
[2018-04-21] VITALS (12 sets, daily range): BP systolic 81–129; BP diastolic 40–63
[~2018-04-21] VITALS: Ht 188 cm; Wt 83.0 kg
[~2018-04-21 12:08] MED LIST changes: +HYDR-3165 PO; -HYDR-971 PO; -IPRA3AMP NEB; +IPRA3AMP29 NEB
[2018-04-21] MEDS ORDERED: ONDANSETRON PF 4 MG/2 ML VIAL. ONE (12:43)
[2018-04-21] MEDS ORDERED: ONDANSETRON PF 4 MG/2 ML VIAL. IV ONE (12:45)
[2018-04-21] MEDS ORDERED: IV NORMAL SALINE 1,000ML 1,000 ML IV ONE (12:45)
--- NOTE | 2018-04-21 12:50 | PHYS DOC ---
Past History Past Medical History: Anxiety Additional Past Medical Histor: methamphetamine abuse Past Surgical History: No Surgical History Smoking: Greater than 1 pack/day Alcohol Use: None Drug Use: Methadone Social History Narrative: FORMER SMOKER Adult General Chief Complaint Chief Complaint: COUGH HPI HPI 47-year-old male presents with cough and fever. The patient was seen in another emergency room 2 days ago with decreased appetite, cough, and anxiety. He was treated for anxiety. Today the patient has a fever in the ED of 100.6. He states that he has had mostly dry cough with some mucus production. He also admits to thirst and frequent urination. Denies dysuria. He has lower abdominal cramping that comes and goes. The patient is very emotionally upset. He has had a definite family as well as a relative coming home from care facility to live with him. He is having a difficult time adjusting. The patient is also recovering methamphetamine addict. He has been clean for 2 months. He was given a prescription for alprazolam by the other hospital. He brought the bottle with him. The patient has not been seeing a counselor. He does usually go to a drug recovery group 3 days week. He has not gone the last 2 weeks. Review of Systems Review of Systems Constitutional: Denies fever or chills [] Eyes: Denies change in visual acuity, redness, or eye pain [] HENT: Denies nasal congestion or sore throat [] Respiratory: Denies cough or shortness of breath [] Cardiovascular: No additional information not addressed in HPI [] GI: Denies abdominal pain, nausea, vomiting, bloody stools or diarrhea [] : Frequent urination[] Musculoskeletal: Denies back pain or joint pain [] Integument: Denies rash or skin lesions [] Neurologic: Denies headache, focal weakness or sensory changes [] Endocrine: Denies polyuria or polydipsia [] All other systems were reviewed and found to be within normal limits, except as documented in this note. Current Medications Current Medications Current Medications Medications (Trade) Dose Ordered Sig/Adan Start Time Stop Time Status Last Admin Dose Admin Ondansetron HCl (Zofran) 4 mg 1X ONCE 04/21/18 12:45 04/21/18 12:46 UNV Sodium Chloride 1,000 ml @ 1,000 mls/hr 1X ONCE 04/21/18 12:45 04/21/18 13:44 UNV Allergies Allergies Allergies Coded Allergies Type Severity Reaction Last Updated Verified No Known Drug Allergies 04/21/18 No Physical Exam Physical Exam Constitutional: Well developed, thin, adequately nourished, mild acute emotional distress, non-toxic appearance. [] HENT: Normocephalic, atraumatic, bilateral external ears normal, oropharynx dry , no oral exudates, nose normal. [] Eyes: PERRLA, EOMI, conjunctiva normal, no discharge. [] Neck: Normal range of motion, no tenderness, supple, no stridor. [] Cardiovascular:Heart rate regular rhythm, no murmur [] Lungs & Thorax: Bilateral breath sounds clear to auscultation [] Abdomen: Bowel sounds normal, soft, no tenderness, no masses, no pulsatile masses. [] Skin: Warm, dry, no erythema, no rash. [] Back: No tenderness, no CVA tenderness. [] Extremities: No tenderness, no cyanosis, no clubbing, ROM intact, no edema. [] Neurologic: Alert and oriented X 3, normal motor function, normal sensory function, no focal deficits noted. [] Psychologic: Affect normal, judgement normal, mood normal. [] Current Patient Data Vital Signs Vital Signs Date Time Temp Pulse Resp B/P (MAP) Pulse Ox O2 Delivery O2 Flow Rate FiO2 04/21/18 12:29 100.6 131 22 96 Room Air EKG EKG [] Radiology/Procedures Radiology/Procedures [] Impressions: EXAM: CHEST 1 VIEW History: Shortness of breath, cough COMPARISON: 09/11/2016 TECHNIQUE: Single portable radiograph of the chest FINDINGS: Focal consolidation identified in the right lower lobe lung likely pneumonia . Heart size grossly appears unremarkable. IMPRESSION: Consolidation identified in the right lower lobe lung likely pneumonia. Follow-up to resolution. Electronically signed by: Asaf De Luna MD (04/21/2018 1:02 PM) [place] [id number] DICTATED AND SIGNED BY: ASAF DE LUNA MD DATE: 04/21/18 1301 CC: AMEENA LANG DO; BENJAMIN DOUGLAS MD ~ Course & Med Decision Making Course & Med Decision Making Pertinent Labs and Imaging studies reviewed. (See chart for details) The patient's x-rays significant for pneumonia. He also has an elevated lactic acid of over 3. The patient has a heart rate of 120 on arrival and 22 respirations a minute. He has a normal blood pressure. His labs are significant for white count 12.6. The patient meets sepsis criteria. He will be given the appropriate fluids at 30 mL/kg. Due to the patient's history of IV drug use, I will treat him with Vancomycin, Rocephin and azithromycin. I discussed the case with Dr. Douglas and he has accepted the patient for admission to the ICU. During the patient's stay in the ED, he developed some chest tightness. Repeat EKG showed sinus tachycardia with PVC. There are no elevations. A troponin was sent along with his repeat lactic acid. Those are pending. 45 minutes of critical care time was spent on this patient exclusive of other billable procedures. [] Dragon Disclaimer Dragon Disclaimer This electronic medical record was generated, in whole or in part, using a voice recognition dictation system. Departure Departure: Referrals: BENJAMIN DOUGLAS MD (PCP) AMEENA LANG DO Apr 21, 2018 12:50
[2018-04-21 12:55] LABS: BASO % 0 % (0-3); EOS % 0 % (0-3); HEMATOCRIT 41.8 % (39.0-53.0); HEMOGLOBIN 13.8 g/dL (13.0-17.5); LYMPH # 1.4 x10^3/uL (1.0-4.8); LYMPH % 11 % (24-48); MEAN CORPUSCULAR HEMOGLOBIN 30 pg (25-35); MEAN CORPUSCULAR HGB CONC 33 g/dL (31-37); MEAN CORPUSCULAR VOLUME 90 fL (79-100); MONO # 0.3 x10^3/uL (0.0-1.1); MONO % 3 % (0-9); NEUT # 10.8 x10^3uL (1.8-7.7); NEUT % 86 % (31-73); PLATELET COUNT 367 x10^3/uL (140-400); RED BLOOD COUNT 4.66 x10^6/uL (4.30-5.70); RED CELL DISTRIBUTION WIDTH 14.1 % (11.5-14.5); WHITE BLOOD COUNT 12.6 x10^3/uL (4.0-11.0)
--- NOTE | 2018-04-21 13:06 | RAD ---
EXAM: CHEST 1 VIEW History: Shortness of breath, cough COMPARISON: 09/11/2016 TECHNIQUE: Single portable radiograph of the chest FINDINGS: Focal consolidation identified in the right lower lobe lung likely pneumonia . Heart size grossly appears unremarkable. IMPRESSION: Consolidation identified in the right lower lobe lung likely pneumonia. Follow-up to resolution. Electronically signed by: Asaf Painter MD (04/21/2018 1:02 PM) [facility]
[2018-04-21 13:08] LABS: ALBUMIN 1.6 g/dL (3.4-5.0); ALBUMIN/GLOBULIN RATIO 0.3 (1.0-1.7); CALCIUM 7.3 mg/dL (8.5-10.1); GFR 80.1; POTASSIUM 3.2 mmol/L (3.5-5.1); TOTAL BILIRUBIN 1.8 mg/dL (0.2-1.0); TOTAL PROTEIN 6.9 g/dL (6.4-8.2)
[2018-04-21] MEDS ORDERED: NORMAL SALINE IV ONE ×2 (13:30)
[2018-04-21 13:40] LABS: INFLUENZA A PATIENT NEGATIVE (NEGATIVE); INFLUENZA B PATIENT NEGATIVE (NEGATIVE)
[2018-04-21] MEDS ORDERED: ACETAMINOPHEN 500 MG TABLET PO ONE (13:45)
[2018-04-21] MEDS ORDERED: POTASSIUM CHLORIDE 20 MEQ TABLET.ER. PO ONE (13:45)
[2018-04-21] MEDS ORDERED: IV NORMAL SALINE 250ML 250 ML ONE (13:46)
[2018-04-21] MEDS ORDERED: AZITHROMYCIN 500 MG VIAL. IV ONE (13:46)
[2018-04-21] MEDS ORDERED: IV NORMAL SALINE 100ML 100 ML ONE (13:54)
[2018-04-21] MEDS ORDERED: IV NORMAL SALINE 500ML 0 ML ONE (13:58)
[2018-04-21] MEDS ORDERED: VANCOMYCIN 1 GM VIAL. ONE (13:59)
[2018-04-21] MEDS ORDERED: VANCOMYCIN 2 GM in IV NORMAL SALINE 500ML 500 ML IV ONE (14:00)
[2018-04-21] MEDS ORDERED: AZITHROMYCIN 500 MG in IV NORMAL SALINE 250ML 250 ML IV ONE (14:00)
[2018-04-21 14:02] LABS: AMPHETAMINE/METHAMPHETAMINE NEG (NEG); BACTERIA,URINE 0 /HPF (0-FEW); BARBITURATES NEG (NEG); BENZODIAZEPINES NEG (NEG); BILIRUBIN,URINE MOD (NEG); CANNABINOIDS NEG (NEG); CLARITY,URINE CLEAR; COCAINE NEG (NEG); COLOR,URINE AMBER; GLUCOSE,URINE NEG (NEG); METHADONE NEG (NEG); NITRITE,URINE NEG (NEG); OPIATES NEG (NEG); PHENCYCLIDINE NEG (NEG); RBC,URINE RARE /HPF (0-2); SQUAMOUS EPITHELIAL CELL,UR OCC /LPF; UROBILINOGEN,URINE 8 mg/dL (0.2 mg/dL); WBC,URINE 0 /HPF (0-4)
[2018-04-21] MEDS ORDERED: ONDANSETRON PF 4 MG/2 ML VIAL. IV PRN (14:15)
[2018-04-21] MEDS ORDERED: IV NORMAL SALINE 1,000ML 2,460 ML IV SCH (15:06)
[2018-04-21] MEDS ORDERED: ONDANSETRON 4 MG PO PRN (15:15)
[2018-04-21] MEDS ORDERED: ALBUTEROL SULFATE 8GM INHALER. INH PRN (15:15)
[2018-04-21] MEDS ORDERED: ELECTROLYTE (ICU) PROTOCOL. MC PRN (15:15)
[2018-04-21] MEDS ORDERED: IV NORMAL SALINE 500ML 500 ML IV PRN (15:15)
[2018-04-21] MEDS ORDERED: NOREPINEPHRINE BITARTRATE 16 MG in IV NORMAL SALINE 250ML 250 ML IV PRN (15:15)
[2018-04-21] MEDS ORDERED: IPRATRPIUM/ALBUTEROL 0.5/2.5MG 3 ML NEBU. ONE (15:16)
[2018-04-21] MEDS ORDERED: CYCLOBENZAPRINE 10 MG TABLET. PO SCH (15:30)
[2018-04-21] MEDS ORDERED: ALBUTEROL SULFATE 2.5 MG/3 ML NEBU. NEB PRN (15:30)
[2018-04-21] MEDS ORDERED: ONDANSETRON ODT 4 MG TAB.RAPDIS PO PRN (15:30)
[2018-04-21] MEDS ORDERED: ALPR0.25 PO (15:38)
[2018-04-21] MEDS: IPRATRPIUM/ALBUTEROL 0.5/2.5MG 3 ML NEBU. NEB SCH ×2 (16:00→20:10)
[2018-04-21] MEDS: VANCOMYCIN PER PHARMACY MC PRN (16:19)
[2018-04-21] MEDS: IV NORMAL SALINE 1,000ML 1,000 ML IV SCH ×2 (16:44→20:34)
[2018-04-21] MEDS: ALPRAZolam 0.25 MG TABLET PO PRN (18:04)
[2018-04-21] MEDS: IBUPROFEN 800 MG TABLET. PO PRN ×2 (18:04→22:35)
[2018-04-21] MEDS ORDERED: ACETAMINOPHEN 500 MG TABLET PO PRN (20:15)
[2018-04-21] MEDS: LACTOBACILLUS RHAMNOSUS GG 1 CAPSULE. PO SCH (20:34)
--- NOTE | 2018-04-21 23:04 | EKG ---
[address] [address] Test Date: 2018-04-21 Test Time: 13:57:48 Pat Name: ZAIRA ARRINGTON Department: Room: [facility] 1 Gender: M Tie Layer: BHAVIN : 1970 Requested By: AMEENA LANG Order Number: [id number] Reading MD: Shahzad Navarro Measurements Intervals [place] Rate: 109 P: 52 UT: 164 QRS: -36 QRSD: 104 T: 75 QT: 304 QTc: 411 Interpretive Statements SINUS TACHYCARDIA ABNORMAL LEFT AXIS DEVIATION LEFT ANTERIOR FASCICULAR BLOCK T ABNORMALITY IN HIGH LATERAL LEADS ABNORMAL ECG Electronically Signed On 04-25-2018 10:31:10 [employer] OPERATOR by Shahzad Navarro
[2018-04-22] VITALS (52 sets, daily range): BP systolic 82–122; BP diastolic 55–78
[2018-04-22] MEDS ORDERED: PIP/TAZO PER PHARMACY MC PRN (01:15)
[2018-04-22] MEDS: VANCOMYCIN 1.25 GM in IV NORMAL SALINE 250ML 250 ML IV SCH ×2 (01:19→14:01)
[2018-04-22] MEDS: IV NORMAL SALINE 1,000ML 1,000 ML IV SCH ×5 (01:20→21:43)
[2018-04-22 01:22] LABS: BGAS PH 7.39 (7.35-7.46)
[2018-04-22 01:26] LABS: BASO % 0 % (0-3); EOS % 0 % (0-3); HEMATOCRIT 38.3 % (39.0-53.0); HEMOGLOBIN 12.6 g/dL (13.0-17.5); LYMPH # 1.3 x10^3/uL (1.0-4.8); LYMPH % 5 % (24-48); MEAN CORPUSCULAR HEMOGLOBIN 29 pg (25-35); MEAN CORPUSCULAR HGB CONC 33 g/dL (31-37); MEAN CORPUSCULAR VOLUME 89 fL (79-100); MONO # 0.6 x10^3/uL (0.0-1.1); MONO % 2 % (0-9); NEUT # 27.1 x10^3uL (1.8-7.7); NEUT % 93 % (31-73); PLATELET COUNT 320 x10^3/uL (140-400); RED BLOOD COUNT 4.29 x10^6/uL (4.30-5.70); RED CELL DISTRIBUTION WIDTH 14.3 % (11.5-14.5)
[2018-04-22 01:37] LABS: CALCIUM 6.5 mg/dL (8.5-10.1); CREATININE 0.9 mg/dL (0.7-1.3); GFR 90.4
[2018-04-22 01:45] LABS: % BANDS 7 % (0-9); % LYMPHS 4 % (24-48); % METAS 1 % (0-0); % MONOS 1 % (0-10); % SEGS 86 % (35-66)
[2018-04-22 01:46] LABS: PLT ESTIMATE ADEQUATE (ADEQUATE); TOXIC GRANULATION PRESENT
[2018-04-22] MEDS: PIPERACILLIN/TAZOBACTAM 4.5 GM in IV NORMAL SALINE 50ML 50 ML IV SCH ×4 (02:10→17:53)
[2018-04-22] MEDS: TOBRAMYCIN PER PHARMACY MC PRN ×3 (02:58→23:03)
[2018-04-22] MEDS ORDERED: TOBRAMYCIN SULFATE IV SCH ×2 (03:00→07:00)
[2018-04-22] MEDS ORDERED: NORMAL SALINE IV SCH ×2 (03:00→07:00)
[2018-04-22] MEDS: AA 3%/ELECTROLYTE-TPN SOLN/GLY 1,000 ML IV SCH ×2 (04:07→17:46)
[2018-04-22] MEDS: IPRATRPIUM/ALBUTEROL 0.5/2.5MG 3 ML NEBU. NEB SCH ×4 (05:45→20:00)
[2018-04-22 07:05] LABS: BASO % 0 % (0-3); EOS % 0 % (0-3); HEMATOCRIT 41.8 % (39.0-53.0); HEMOGLOBIN 13.6 g/dL (13.0-17.5); LYMPH # 1.8 x10^3/uL (1.0-4.8); LYMPH % 7 % (24-48); MEAN CORPUSCULAR HEMOGLOBIN 30 pg (25-35); MEAN CORPUSCULAR HGB CONC 33 g/dL (31-37); MEAN CORPUSCULAR VOLUME 91 fL (79-100); MONO # 0.6 x10^3/uL (0.0-1.1); MONO % 2 % (0-9); NEUT # 23.8 x10^3uL (1.8-7.7); NEUT % 90 % (31-73); PLATELET COUNT 358 x10^3/uL (140-400); RED BLOOD COUNT 4.57 x10^6/uL (4.30-5.70); RED CELL DISTRIBUTION WIDTH 14.7 % (11.5-14.5); WHITE BLOOD COUNT 26.2 x10^3/uL (4.0-11.0)
[2018-04-22 07:15] LABS: CALCIUM 6.9 mg/dL (8.5-10.1); CREATININE 0.9 mg/dL (0.7-1.3); GFR 90.4; POTASSIUM 4.4 mmol/L (3.5-5.1)
[2018-04-22] MEDS ORDERED: TAMSULOSIN 0.4 MG CAP.ER.24H. PO SCH (09:00)
[2018-04-22] MEDS: LACTOBACILLUS RHAMNOSUS GG 1 CAPSULE. PO SCH ×2 (09:55→20:22)
[2018-04-22] MEDS: ENOXAPARIN 40 MG/0.4 ML SYRINGE. SQ SCH (09:56)
--- NOTE | 2018-04-22 11:45 | HP ---
ADMIT DATE: 04/21/2018 HISTORY OF PRESENT ILLNESS: A 47-year-old gentleman came in through the Emergency Room, apparently he was seen at another Emergency Room 2 days ago with a decreased appetite, cough, and anxiety. The patient, however, came in to this Emergency Room today. He was having temperature of 100.6, chronic cough, mucus production, also admitted with frequent urination. The patient had some lower abdominal cramping, very anxious individual. The patient had a history of drug addiction to methamphetamine. In any case, the patient was seen, he was found to be septic and he was immediately admitted with his pneumonia as the underlying precursor to his sepsis. The patient's vital signs at the time of admission included blood pressure of 127/74, respiratory rate of 28, pulse 114, temperature odonnell 103.2. His oxygen saturation is 97-95%. The patient started on antibiotics immediately and also a chest x-ray showed a large right lower lobe consolidation. The patient is in critical ICU for severe sepsis related to pneumonia, sepsis protocol was initiated immediately. PAST MEDICAL HISTORY: History of kidney stones, sciatica, anxiety, meth abuse, tobacco abuse. Vaccinations to tetanus diphtheria, all up-to-date. ALLERGIES: No known drug allergies. FAMILY HISTORY: Mother has diabetes. Father had an abdominal aneurysm repair, but he sometime ago. The patient otherwise is a full code. It was noted that the patient does smoke approximately a pack of cigarettes a day and alcohol use. Drug use as noted, but has been clean for the last 2 months. REVIEW OF SYSTEMS: The patient really not able to give much of a history. He did respond to me. He responded to his name. PHYSICAL EXAMINATION: GENERAL: This is a critically ill individual. Skin was somewhat clammy. VITAL SIGNS: At the time of exam, blood pressure, he was on lower side approximately 87/40 came up to approximately to 100/61, respiratory rate down to 25, temperature decreased, although he has taking Motrin and Tylenol. Pulse of 65. The patient's urine output has been excellent, may not be up to date, but it looks like he had a total of 2500 mL. He is putting out urine output average of 1.3 mL per kilo per hour. HEENT: Otherwise the patient was unresponsive to his name. Eyes were PERRLA. MOUTH AND THROAT: Basically normal, some poor dentition. NECK: Supple, without JVD, carotids bruits, or thyromegaly. LUNGS: Basically diminished primarily in the right lower lobe. No wheezing noted. CARDIOVASCULAR: Regular sinus rhythm, S1, S2. ABDOMEN: Soft. No tenderness noted. EXTREMITIES: No clubbing, cyanosis, or edema. NEUROLOGIC: As noted arousable, but very sedated. Skin is somewhat clammy. Reflexes diminished in the rest of the lower extremities. Plantars down. LABORATORY DATA: The patient's white count was initially 12,000 went up to 29,000, no left shift noted. Hemoglobin 12.6 and hematocrit 38. Chemistry, is replacing potassium ____. BUN and kidney function perfect. Lactic acid was 3.3, has come down to 1.8, calcium low at 6.5, but he also has an extremely low albumin of 1.6. His total bilirubin is elevated to 1.8, slight elevation of his liver enzymes and alkaline phosphatase. Sodium was initially 129 which came up. Urine was basically unremarkable. Tox screen was negative. Serology for influenza negative. Other tests are still pending. His blood gas 7.39, pCO2 of 30, pO2 of 128, bicarbonate slightly low at 19. He is on 2 liters 28% oxygen saturation 99%, also has hypothermia, he seems to be improving. We will put a warming blanket on him. His temperature ____ monitor that. He is putting out excellent urine. His blood pressure has improved as noted. He is still on Levophed, but he is over 100. Pulses come down into a reasonable range. Changed his antibiotics per Kevin to vancomycin, Zosyn, and tobramycin. I will see how he adjust to those, otherwise may consider putting him on some for TPN for additional nutritional support and make further evaluation on him. Otherwise, he is in critical condition in the ICU, close monitoring for ICU status, and septic protocol. BENJAMIN DOUGLAS MD DR: NESHA/sherin JOB#: [id number] / [id number]
[2018-04-22] MEDS: ALPRAZolam 0.25 MG TABLET PO PRN ×2 (14:45→21:43)
[2018-04-22] MEDS: MORPHINE SULFATE 2 MG/ML DISP.SYRIN. IV PRN ×2 (16:15→20:53)
[2018-04-22] MEDS ORDERED: TOBRAMYCIN RANDOM LEVEL. MC ONE (17:00)
[2018-04-23] VITALS (24 sets, daily range): BP systolic 103–149; BP diastolic 50–75
[2018-04-23] MEDS: PIPERACILLIN/TAZOBACTAM 4.5 GM in IV NORMAL SALINE 50ML 50 ML IV SCH ×4 (00:09→18:05)
[2018-04-23] MEDS: IV NORMAL SALINE 1,000ML 1,000 ML IV SCH ×4 (01:41→18:31)
[2018-04-23] MEDS: VANCOMYCIN 1.25 GM in IV NORMAL SALINE 250ML 250 ML IV SCH ×3 (02:16→18:30)
[2018-04-23] MEDS: VANCOMYCIN PER PHARMACY MC PRN ×2 (02:43→02:47)
[2018-04-23] MEDS: TOBRAMYCIN PER PHARMACY MC PRN (02:44)
[2018-04-23] MEDS: ALPRAZolam 0.25 MG TABLET PO PRN ×4 (03:27→20:54)
[2018-04-23] MEDS: IPRATRPIUM/ALBUTEROL 0.5/2.5MG 3 ML NEBU. NEB SCH ×4 (05:36→20:26)
[2018-04-23 05:50] LABS: BASO # 0.1 x10^3/uL (0.0-0.2); BASO % 1 % (0-3); EOS # 0.1 x10^3/uL (0.0-0.7); EOS % 1 % (0-3); HEMATOCRIT 36.7 % (39.0-53.0); LYMPH # 1.7 x10^3/uL (1.0-4.8); LYMPH % 16 % (24-48); MEAN CORPUSCULAR HEMOGLOBIN 30 pg (25-35); MEAN CORPUSCULAR HGB CONC 33 g/dL (31-37); MEAN CORPUSCULAR VOLUME 91 fL (79-100); MONO # 0.2 x10^3/uL (0.0-1.1); MONO % 1 % (0-9); NEUT % 81 % (31-73); PLATELET COUNT 329 x10^3/uL (140-400); RED BLOOD COUNT 4.04 x10^6/uL (4.30-5.70); RED CELL DISTRIBUTION WIDTH 14.8 % (11.5-14.5)
[2018-04-23 05:55] LABS: CALCIUM 6.4 mg/dL (8.5-10.1); CREATININE 0.7 mg/dL (0.7-1.3); GFR 120.9; POTASSIUM 3.6 mmol/L (3.5-5.1)
[2018-04-23] MEDS: AA 3%/ELECTROLYTE-TPN SOLN/GLY 1,000 ML IV SCH ×2 (06:46→20:52)
[2018-04-23] MEDS: LACTOBACILLUS RHAMNOSUS GG 1 CAPSULE. PO SCH ×2 (08:33→20:50)
[2018-04-23] MEDS: ENOXAPARIN 40 MG/0.4 ML SYRINGE. SQ SCH (08:33)
[2018-04-23] MEDS: NORMAL SALINE IV SCH (08:50)
[2018-04-23] MEDS: TOBRAMYCIN SULFATE IV SCH (08:50)
[2018-04-23] MEDS ORDERED: HYDROmorphone PF 2 MG/ML VIAL IV PRN (10:45)
--- NOTE | 2018-04-23 12:24 | PN ---
DATE: SUBJECTIVE: A 47-year-old male, critically ill, septic shock, sepsis with severe pneumonia. He was doing ____ better, but he is still extremely ill, still in the ICU, still critical. Blood pressure 116/65, respiration 25, pulse 92, temperature up to 97.7, last one read. In any case, he is able to sit in the chair now and he is still extremely weak, still extremely short of breath, cannot speak more than couple of words without getting gagging and coughing. His white count has come down from 26 down to 11,000. The patient otherwise electrolytes look reasonably stable except for the calcium, but he is low on protein. We were trying to give him additional nutritional support there. He is still in pain. Morphine does not work for him. Continue to monitor there and make further assessment. PHYSICAL EXAMINATION: LUNGS: Otherwise, lungs still show crackling sounds in the right lower lobe. CARDIOVASCULAR: Regular sinus rhythm. ABDOMEN: Soft, nontender. EXTREMITIES: No clubbing, cyanosis, no edema. NEUROLOGICAL: He is more ____. He still is able to speak a couple of words at a time now, critically ill. He will continue on IV triple antibiotics and continue to monitor him on that. IMPRESSION: Septic shock, pneumonia of unspecified etiology, right lower lobe. He has been taken off the Levophed. He was hypotensive, hypothermia, severe protein malnutrition, hypocalcemia pseudo secondary to low albumin, leukocytosis. Continue in the ICU in critical care. BENJAMIN DOUGLAS MD DR: NESHA/sherin JOB#: [id number] / [id number]
--- NOTE | 2018-04-23 12:30 | RAD ---
Chest radiograph 04/23/2018 11:07 AM INDICATION: Worsening cough and shortness of breath COMPARISON: Chest radiograph April 21, 2018 TECHNIQUE: Frontal view of the chest is provided. FINDINGS: The cardiomediastinal silhouette is within normal limits. Right upper extremity PICC is identified with the distal tip projecting over the cavoatrial junction. Small right pleural effusion has progressed. No pulmonary vascular congestion or pneumothorax. IMPRESSION: Right upper extremity PICC is identified with the distal tip projecting over the expected region of the cavoatrial junction. No pneumothorax. Marginal progression of right small pleural effusion with adjacent compressive atelectasis versus infiltrate. Electronically signed by: Kaylee Campos MD (04/23/2018 12:26 PM) [facility]
[2018-04-23] MEDS: NICOTINE 21MG PATCH. TD SCH (16:55)
[2018-04-24] VITALS (13 sets, daily range): BP systolic 108–133; BP diastolic 52–72
[2018-04-24] MEDS: PIPERACILLIN/TAZOBACTAM 4.5 GM in IV NORMAL SALINE 50ML 50 ML IV SCH ×4 (01:04→19:59)
[2018-04-24] MEDS: IV NORMAL SALINE 1,000ML 1,000 ML IV SCH ×4 (01:05→12:58)
[2018-04-24] MEDS: VANCOMYCIN 1.25 GM in IV NORMAL SALINE 250ML 250 ML IV SCH ×3 (02:27→17:59)
[2018-04-24] MEDS: ALPRAZolam 0.25 MG TABLET PO PRN ×3 (02:44→19:51)
[2018-04-24] MEDS: IPRATRPIUM/ALBUTEROL 0.5/2.5MG 3 ML NEBU. NEB SCH ×4 (05:14→21:09)
[2018-04-24] MEDS: NORMAL SALINE IV SCH (08:00)
[2018-04-24] MEDS: TOBRAMYCIN SULFATE IV SCH (08:00)
[2018-04-24] MEDS: ENOXAPARIN 40 MG/0.4 ML SYRINGE. SQ SCH (08:18)
[2018-04-24] MEDS: LACTOBACILLUS RHAMNOSUS GG 1 CAPSULE. PO SCH ×2 (08:18→21:00)
[2018-04-24] MEDS: NICOTINE 21MG PATCH. TD SCH (08:18)
[2018-04-24 10:08] LABS: CREATININE 0.6 mg/dL (0.7-1.3); GFR 144.4
[2018-04-24 10:14] LABS: VANC TR 12.8 mcg/mL (10.0-20.0)
[2018-04-24] MEDS: VANCOMYCIN PER PHARMACY MC PRN (10:46)
--- NOTE | 2018-04-24 20:08 | PN ---
DATE: 04/24/2018 SUBJECTIVE: The patient with critical condition in the ICU. He has made a good progress here in the last 24 hours. He is off his Levophed drip. OBJECTIVE: VITAL SIGNS: Blood pressure 115/60, respiratory rate 24, pulse 85, afebrile, temperature up to 98.3 without warming blanket. GENERAL: The patient is still very weak; however, still having trouble moving around. Labs still show improvement, but still ways to go. Chest x-ray still shows consolidation. Vancomycin being followed by pharmacy. Otherwise, the patient is alert and oriented, still groggy. LUNGS: Diminished, but not nearly as much as they have been; they show improvement. CARDIOVASCULAR: Regular sinus rhythm. ABDOMEN: Soft, nontender. EXTREMITIES: No clubbing, cyanosis, nor edema. IMPRESSION: 1. Sepsis, septic shock. 2. Pneumonia, right lower lobe community-acquired, unknown etiology. 3. Hypotension, resolved. 4. Hypothermia, resolved. 5. Severe protein malnutrition, improving. 6. Hypocalcemia pseudo secondary to low albumin. 7. Leukocytosis, resolved, still needs rehabilitation. PLAN: Continue to give additional aide. They are to strengthen him. PT, OT to be started. BENJAMIN DOUGLAS MD DR: NESHA/sherin JOB#: [id number] / [id number]
[2018-04-25] MEDS: PIPERACILLIN/TAZOBACTAM 4.5 GM in IV NORMAL SALINE 50ML 50 ML IV SCH ×2 (00:58→08:20)
[2018-04-25] MEDS: ALPRAZolam 0.25 MG TABLET PO PRN (00:58)
[2018-04-25] MEDS: IV NORMAL SALINE 1,000ML 1,000 ML IV SCH ×3 (01:00→09:32)
[2018-04-25] MEDS: VANCOMYCIN 1.25 GM in IV NORMAL SALINE 250ML 250 ML IV SCH ×2 (02:16→09:32)
[2018-04-25 03:57] VITALS: BP 136/74
[2018-04-25 04:20] LABS: BASO % 0 % (0-3); EOS # 0.1 x10^3/uL (0.0-0.7); EOS % 2 % (0-3); HEMATOCRIT 33.7 % (39.0-53.0); HEMOGLOBIN 11.5 g/dL (13.0-17.5); LYMPH # 2.7 x10^3/uL (1.0-4.8); LYMPH % 35 % (24-48); MEAN CORPUSCULAR HEMOGLOBIN 31 pg (25-35); MEAN CORPUSCULAR HGB CONC 34 g/dL (31-37); MEAN CORPUSCULAR VOLUME 90 fL (79-100); MONO # 0.4 x10^3/uL (0.0-1.1); MONO % 6 % (0-9); NEUT # 4.5 x10^3uL (1.8-7.7); NEUT % 58 % (31-73); PLATELET COUNT 330 x10^3/uL (140-400); RED BLOOD COUNT 3.75 x10^6/uL (4.30-5.70); RED CELL DISTRIBUTION WIDTH 14.6 % (11.5-14.5); WHITE BLOOD COUNT 7.8 x10^3/uL (4.0-11.0)
[2018-04-25 04:30] LABS: CALCIUM 6.6 mg/dL (8.5-10.1); CREATININE 0.7 mg/dL (0.7-1.3); GFR 120.9; POTASSIUM 3.8 mmol/L (3.5-5.1)
[2018-04-25] MEDS: IPRATRPIUM/ALBUTEROL 0.5/2.5MG 3 ML NEBU. NEB SCH ×2 (05:02→10:17)
[2018-04-25 08:03] VITALS: BP 119/61
[2018-04-25] MEDS: NICOTINE 21MG PATCH. TD SCH (08:19)
[2018-04-25] MEDS: LACTOBACILLUS RHAMNOSUS GG 1 CAPSULE. PO SCH (08:20)
[2018-04-25] MEDS: ENOXAPARIN 40 MG/0.4 ML SYRINGE. SQ SCH (08:21)
[2018-04-25 08:32] LABS: BASO # 0.1 x10^3/uL (0.0-0.2); BASO % 1 % (0-3); EOS # 0.1 x10^3/uL (0.0-0.7); EOS % 1 % (0-3); HEMATOCRIT 34.3 % (39.0-53.0); HEMOGLOBIN 11.4 g/dL (13.0-17.5); LYMPH # 2.2 x10^3/uL (1.0-4.8); LYMPH % 29 % (24-48); MEAN CORPUSCULAR HEMOGLOBIN 30 pg (25-35); MEAN CORPUSCULAR HGB CONC 33 g/dL (31-37); MEAN CORPUSCULAR VOLUME 90 fL (79-100); MONO # 0.4 x10^3/uL (0.0-1.1); MONO % 5 % (0-9); NEUT # 4.8 x10^3uL (1.8-7.7); NEUT % 64 % (31-73); PLATELET COUNT 438 x10^3/uL (140-400); RED CELL DISTRIBUTION WIDTH 14.5 % (11.5-14.5); WHITE BLOOD COUNT 7.5 x10^3/uL (4.0-11.0)
[2018-04-25 08:44] LABS: ALBUMIN 1.2 g/dL (3.4-5.0); ALBUMIN/GLOBULIN RATIO 0.3 (1.0-1.7); CALCIUM 6.9 mg/dL (8.5-10.1); CREATININE 0.8 mg/dL (0.7-1.3); GFR 103.6; POTASSIUM 3.2 mmol/L (3.5-5.1); TOTAL BILIRUBIN 0.6 mg/dL (0.2-1.0); TOTAL PROTEIN 5.7 g/dL (6.4-8.2)
[2018-04-25] MEDS: TOBRAMYCIN SULFATE IV SCH (09:00)
[2018-04-25] MEDS: NORMAL SALINE IV SCH (09:00)
[2018-04-25] MEDS ORDERED: POTASSIUM CHLORIDE 20 MEQ TABLET.ER. PO ONE (09:15)
[2018-04-25] MEDS ORDERED: CEFT1VIA13 IJ (13:16)
[2018-04-25] MEDS ORDERED: BUSP10TA PO (13:16)
== END 2018-04-25 14:11 | disposition home or self-care (01) | DRG 871 ==
LOC: ER 12:08 → ICU 14:43
PROVIDERS: ADMIT Family Medicine; ATTEND Family Medicine
PROC: 02HV33Z Insertion of Infusion Device into Superior Vena Cava, Percutaneous Approach (ICD-10-PCS; principal; 2018-04-22)
DX: A41.9 Sepsis, unspecified organism (principal); R65.21 Severe sepsis with septic shock; E43 Unspecified severe protein-calorie malnutrition; J18.1 Lobar pneumonia, unspecified organism; E83.51 Hypocalcemia; T68.XXXA Hypothermia, initial encounter; F41.9 Anxiety disorder, unspecified; Z83.3 Family history of diabetes mellitus; Z87.442 Personal history of urinary calculi; Z87.891 Personal history of nicotine dependence; Z68.23 Body mass index [BMI] 23.0-23.9, adult
CPT/HCPCS: 36415; 36569; 71045; 80048; 80053; 80200; 80202; 80307; 81001; 82565; 82803; 82947; 83605; 84145; 84443; 84484; 84520; 85007; 85025; 86703; 86738; 87040; 87205; 87449; 87641; 87804; 93005; 94640; 96361; 96365; 96367; 96368; 99406; J0456; J0696; J1650; J1956; J2270; J2405; J2543; J3370; J3490; J7040; J7050; J7620; 99291-25; J7030